=== PATIENT | male | born 1935 | race Caucasian/White ===

== ENCOUNTER → 2017-09-01 | Outpatient (REF) | payer MEDICARE, BC ==
[2017-09-01 19:09] LABS: CREATININE FOR GFR 1.28 MG/DL (0.70-1.30); GLOMERULAR FILTRATION RATE 57.4 (>35)
[2017-09-01 19:09] LABS: BLOOD UREA NITROGEN 20 MG/DL (7-18)
== END ==
LOC: M LABNEURO 14:50
DX: I10 Essential (primary) hypertension (principal)
CPT/HCPCS: 82565

== ENCOUNTER → 2020-02-21 | Outpatient (CLI) | payer MEDICARE, BC ==
[~2020-02-21] MED LIST: ATEN25TA PO; CALC500T61 PO; ECOT81TA5 PO; ELIQ2.5T PO; FLAG500T PO; GNP400TA10 PO; LOSA25TA14 PO; NYST10006 TOP; [UNRECOGNIZED DRUG - CODE] PO
--- NOTE | 2020-02-24 08:28 | REPPI ---
PROSTATE BIOPSY ULTRASOUND: 02/21/20. CLINICAL: Elevated PSA levels. TECHNIQUE: Transrectal ultrasound examination. FINDINGS: Ultrasound examination demonstrate heterogenous prostate gland measuring 4.6 x 4.0 x 5.6cm (53cc). The prostate gland is heterogenous and demonstrates small scattered calcifications and cysts without discrete mass lesion. Biopsy performed by Dr. Turpin without complications. IMPRESSION: Heterogenous prostate gland as noted above. Biopsy performed without complication. MTDD
== END ==
LOC: M SMT PRO 10:20
PROVIDERS: ATTEND Urology
DX: C61 Malignant neoplasm of prostate (principal)
CPT/HCPCS: 55700; 76872; G0416

== ENCOUNTER → 2020-02-27 | Outpatient (REF) | payer MEDICARE, BC | LOC: M SMT 17:00 | PROVIDERS: ATTEND Urology | DX: N39.0 Urinary tract infection, site not specified (principal) | CPT/HCPCS: 87088; 87186; G0463 ==

== ENCOUNTER 2020-03-29 21:31 | Inpatient (IN) | payer MEDICARE, BC ==
[~2020-03-29] VITALS: Ht 175.3 cm; Wt 70.9 kg
[2020-03-29] MEDS: REMEDY PHYTOPLEX Z-GUARD PASTE 113GM TUBE (FROM STOREROOM PRODUCT) TOP SCH (23:00)
[2020-03-29] MEDS ORDERED: NOREPINEPHRINE BITARTRATE 8 MG in D5W 500 ML IV SCH (23:15)
[2020-03-29] MEDS ORDERED: MOM 30ML SUSPENSION UDC PO PRN (23:15)
[2020-03-29] MEDS ORDERED: MAALOX 30 ML SUSP *UDC PO PRN (23:15)
--- NOTE | 2020-03-29 23:20 | HPEPDOC ---
[facility] Medical History & Physical Date of Admission Mar 29, 2020 Date of Service: Mar 29, 2020 Attending Physician: JAZMINE MANE MD History and Physical TIME OF SERVICE: 11:35 PM CHIEF COMPLAINT: Confusion HISTORY OF PRESENT ILLNESS: The majority of the history was obtained from medical records and discussion with Dr. Santoro at [facility]. This 84-year-old gentleman was brought to the hospital for evaluation of confusion noted by his . His temperature was 101, heart rate was 108, respiratory rate was 30, blood pressure was 113/60, and O2 sats were 96%. The EKG showed sinus tachycardia with a heart rate of 108. His WBC count was 17.1, hemoglobin was 14.5, and platelets were 110. His sodium was 143, potassium was 4.3, chloride was 104, carbon dioxide was 18, anion gap was 21, BUN was 35, creatinine was 3, GFR was 21, glucose was 105, calcium was 8.4, total bilirubin was 0.8, AST was 59, ALT was 41, alkaline phosphatase was 171, troponin was 0.241 with a repeat of 0.267 about 2 hours later. Total protein was 6.8, albumin was 3.1, and lipase was 45. His PT was 12.7, INR was 1.22, PTT was 28.3, and d-dimer was 35.2 PH was 7.39, PCO2 was 21, and PO2 was 88 Per d/w the chest x-ray was unremarkable. The UA was positive for ketones, leukocyte esterase, RBCs, WBCs and bacteria He was diagnosed with urosepsis and given vancomycin and levofloxacin and ordered on norepinephrine because of persistent hypotension prior to transfer to [facility] for higher level of care. At the time of my evaluation, the patient admitted to feeling very weak, and having fevers and chills; he did not provide concrete answers when asked if he had back pain, abdominal pain or pain with urination REVIEW OF SYSTEMS: 12 point review of systems negative except as listed in HPI PAST MEDICAL/ SURGICAL HISTORY: Dementia Prostate adenocarcinoma left mid lateral prostate [place] score 8, left apex [place] score 7 plans are for EBRT+ ADT or ADT alone with intent to cure Hearing loss Vertigo Chronic Hypertension Left knee surgery Debility, uses a wheelchair Vasectomy SOCIAL HISTORY: He has never smoked He is FAMILY HISTORY: Father had Alzheimer's dementia Mother had cancer ALLERGIES: Please see below. HOME MEDICATIONS: Please see below. PHYSICAL EXAMINATION: Vital Signs Date Time Temp Pulse Resp B/P (MAP) Pulse Ox O2 Delivery O2 Flow Rate FiO2 03/29/20 23:30 100.1 109 34 89/57 (68) 96 Nasal Cannula 3.0 GEN: well-nourished / well developed/ NAD INTEGUMENT: slightly flushed/ not jaundice / excoriations on back HEENT: lips acyanotic /mucus membranes moist and pink / NC in place / hearing aides visible CVS: RRR/NMRG LUNGS: using accessory muscles to breath / tachypneic / decreased air entry bilaterally / breath sounds are deminished ABDOMEN: Contour ( obese) / soft & tender with palpation of lower abdomen : leblanc in place draining urine/ there is blood around the meatus but no jasen blood in the leblanc tube or bag collecting urine MSK/EXTREMITIES: NCAT NEURO: speech is not dysarthric PSYCH: alert and oriented / able to understand and follow all commands LABORATORY DATA: see HPI IMAGING: see HPI MICROBIOLOGY: Blood cx pending... ASSESSMENT: Mr. Spencer is an 84-year-old with a history of prostate cancer, dementia, hypertension and vertigo who presented to [facility] with AMS and was diagnosed with Urosepsis; he was transferred here for a higher level of care. for management of MODS. PLAN: 1. Multiple organ dysfunction syndrome SIRS criteria: Temp >101 / HR >90 / WBC >12 / RR > 20 The source of infection is the Urine Per d/w at [facility] the patient was persistently hypotensive and started on Norepi He also has LORETTA and elevation of his shock liver QSofa score = 3 points = high risk He is DNI but wants CPR Plan: admit to ICU / telemetry / f/u repeat CBC, CMP, prolactin, coags, and lactic acid / Zosyn pending pancx results and /f/u blood cx, UA w Cx and sputum Cx / Acetaminophen PRN for fever / target MAP at of least 65 to 70 / f/u Is and Os with target UOP of at least 0.5 ml/kg/H / f/u FSBS w target serum glucose 140-180 while acutely ill 2. Acute Renal Failure Likely 2/2 sepsis Plan: Is/Os, daily weights / IVF / f/u ulytes for FENa or FEUrea / renal US 3. Early shock liver Plan: trend LFTs 4. AG Metabolic acidosis 2/2 infection Plan: f/u lactic acid / IVF and abx 5. Dyspnea Not sure if he is tachypneic bc he is trying to blow off the excess acid of if there is another process going on Plan: f/u repeat chest xray, and d-dimer 6. Metabolic Encephalopathy Likely 2/2 sepsis Per d/w he was agitated and received 1 dose of ativan Plan: treat infection 7. Type 2 NSTEMI Likley 2/2 sepsis He didn't report having chest pain Plan: telemetry / trend trops 8. Chronic Hypertension Plan: hold losartan DVT PROPHYLAXIS: lovenox Prognosis: guarded DISPOSITION: will need at least 2 midnight's stay LATE ENTRY #Elevated d-dimer He is still tachypneic Plan:start treatment dose lovenox pending VQ scan Home Medications Scheduled Aspirin (Ecotrin) 81 Mg Tablet.dr, 81 MG PO DAILY Calcium Carbonate (Calcium Carbonate) 500 Mg Tablet, 500 MG PO DAILY Garlic (Garlic) 400 Mg Tablet, 400 MG PO DAILY Losartan Potassium (Losartan Potassium) 25 Mg Tablet, 25 MG PO QHS Pumpkin Seed Oil/Saw Mountain (Saw Mountain 160 mg Softgel) 160 Mg Capsule, 160 MG PO DAILY Allergies Coded Allergies: Sulfa (Sulfonamide Antibiotics) (Verified Adverse Reaction, Intermediate, 03/30/20) GI Upset A-FIB/CHADSVASC A-FIB History Current/History of A-Fib/PAF?: No Current PO Anticoag Therapy: No JAZMINE MANE MD Mar 29, 2020 23:20
[2020-03-29 23:30] VITALS: BP 89/57
[2020-03-30] VITALS (19 sets, daily range): BP systolic 89–149; BP diastolic 57–82
[2020-03-30] MEDS ORDERED: CALC500T61 PO (01:00)
[2020-03-30] MEDS ORDERED: ECOT81TA5 PO (01:00)
[2020-03-30] MEDS ORDERED: GNP400TA10 PO (01:00)
[2020-03-30] MEDS ORDERED: [UNRECOGNIZED DRUG - CODE] PO (01:00)
[2020-03-30] MEDS ORDERED: LOSA25TA14 PO (01:00)
[2020-03-30 01:08] LABS: HEMATOCRIT 41.2 % (42.0-52.0); HEMOGLOBIN 13.4 g/dl (13.5-17.5); MEAN CORPUSCULAR HEMOGLOBIN 31.4 pg (27.0-33.0); MEAN CORPUSCULAR HGB CONC 32.5 g/dl (32.0-36.5); MEAN CORPUSCULAR VOLUME 96.5 fl (80.0-96.0); RED BLOOD COUNT 4.27 10^6/uL (4.30-6.10); VENOUS BASE EXCESS -13.5 (-2.0-2.0); VENOUS HCO3 12.1 MEQ/L (23.0-27.0); VENOUS O2 SATURATION 94.4 % (60.0-80.0); VENOUS PARTIAL PRESSURE O2 74.7 mmHg (30.0-50.0); VENOUS PH 7.253 UNITS (7.330-7.430); VENOUS STANDARD HCO3 14.1 MEQ/L; VENOUS TOTAL CO2 12.9 MEQ/L (24.0-28.0); WHITE BLOOD COUNT 23.3 10^3/uL (4.0-10.0)
[2020-03-30] MEDS: NS 1,000 ML IV SCH ×2 (01:17→15:29)
[2020-03-30 01:19] LABS: INR 1.55; PROTHROMBIN TIME 18.9 SECONDS (12.5-14.3)
[2020-03-30] MEDS: ACETAMINOPHEN TAB 650MG DOSE (2X325MG) PO PRN ×4 (01:29→21:06)
[2020-03-30 01:41] LABS: PLATELET COUNT, AUTOMATED 72 10^3/uL (150-450)
[2020-03-30 01:49] LABS: ALBUMIN 2.5 GM/DL (3.2-5.2); CALCIUM LEVEL 7.7 MG/DL (8.8-10.2); CREATININE FOR GFR 2.91 MG/DL (0.70-1.30); GLOMERULAR FILTRATION RATE 22.1 (>35); POTASSIUM SERUM 4.4 MEQ/L (3.5-5.1); TOTAL PROTEIN 6.1 GM/DL (6.4-8.2); TROPONIN I 0.49 NG/ML (< 0.10)
[2020-03-30 01:56] LABS: D-DIMER QUANT > 4000 ng/ml (<500)
[2020-03-30 02:30] LABS: FIBRINOGEN 457 MG/DL (221-452)
[2020-03-30 04:23] LABS: HEMATOCRIT 40.6 % (42.0-52.0); HEMOGLOBIN 12.9 g/dl (13.5-17.5); MEAN CORPUSCULAR HEMOGLOBIN 30.6 pg (27.0-33.0); MEAN CORPUSCULAR HGB CONC 31.8 g/dl (32.0-36.5); MEAN CORPUSCULAR VOLUME 96.2 fl (80.0-96.0); RED BLOOD COUNT 4.22 10^6/uL (4.30-6.10); WHITE BLOOD COUNT 27.5 10^3/uL (4.0-10.0)
[2020-03-30 04:31] LABS: PLATELET COUNT, AUTOMATED 62 10^3/uL (150-450)
[2020-03-30 04:57] LABS: ALBUMIN 2.4 GM/DL (3.2-5.2); BILIRUBIN,TOTAL 0.9 MG/DL (0.2-1.0); CALCIUM LEVEL 7.6 MG/DL (8.8-10.2); CREATININE FOR GFR 2.94 MG/DL (0.70-1.30); GLOMERULAR FILTRATION RATE 21.8 (>35); MAGNESIUM LEVEL 1.6 MG/DL (1.8-2.4); POTASSIUM SERUM 4.6 MEQ/L (3.5-5.1); TOTAL PROTEIN 5.7 GM/DL (6.4-8.2); TROPONIN I 0.87 NG/ML (< 0.10)
[2020-03-30] MEDS: PIPERACILLIN/TAZOBACTAM SOD 4.5 GM in D5W MINI-BAG PLUS 50 ML IV SCH ×2 (05:14→18:14)
[2020-03-30] MEDS ORDERED: ENOXAPARIN 80MG/0.8ML SYRINGE (J1650 PER 10MG) SC SCH (08:00)
--- NOTE | 2020-03-30 08:27 | REP ---
INDICATION: dyspnea. COMPARISON: None FINDINGS: The technique utilized in obtaining the radiograph has magnified the cardiac silhouette and accentuated the interstitial markings. There is no overt cardiomegaly. There is a right-sided PICC line the tip of which is in the superior vena cava. There are patchy right basilar opacities. The diaphragmatic surface of the right lung is elevated and partially silhouetted out. There is right CP angle blunting. Curvilinear opacities are seen in the left lung base. The osseous structures are within normal limits. IMPRESSION: 1. Right lung base findings, as described above, pneumonia/atelectasis/effusion. 2. Probable subsegmental atelectasis left lung base. Early pneumonia cannot be ruled out. 3. Other findings as described above. <Electronically signed by Pillo Napoles > 03/30/20 [id number]
--- NOTE | 2020-03-30 08:30 | REP ---
INDICATION: recheck line placement was pulled. COMPARISON: 03/30/2020 at 12:44 a.m. FINDINGS: The technique utilized in obtaining the radiograph has magnified the cardiac silhouette and accentuated the interstitial markings. The right-sided catheter has been retracted, however, it remains in the superior vena cava. It was previously mentioned as a PICC line catheter, however, it is clear now that it represents a right-sided subclavian central venous catheter. There are no other changes. IMPRESSION: There is no acute cardiopulmonary disease. <Electronically signed by Pillo Napoles > 03/30/20 [id number]
[2020-03-30] MEDS: REMEDY PHYTOPLEX Z-GUARD PASTE 113GM TUBE (FROM STOREROOM PRODUCT) TOP SCH ×3 (09:00→21:00)
[2020-03-30] MEDS ORDERED: ENOXAPARIN 30MG/0.3ML SYRINGE (J1650 PER 10MG) SC SCH (09:00)
[2020-03-30] MEDS ORDERED: NS 1,000 ML IV ONE ×2 (10:45→17:30)
[2020-03-30 13:10] LABS: CLOSTRIDIUM DIFFICILE PCR NEGATIVE (NEGATIVE)
--- NOTE | 2020-03-30 13:32 | IPNPDOC ---
Text Note Date of Service The patient was seen on 03/30/20. NOTE Patient was seen and examined by me this morning. The patient states that he continues to have some right lower quadrant abdominal pain and he continues to have liquid diarrhea. He states that he is slightly short of breath as well. PHYSICAL EXAMINATION: General: The patient is awake, alert, oriented x3, in mild distress because of abdominal pain and shortness of breath Head and Neck Exam: Extraocular muscles intact. Pupils equally round and reactive to light. Extremities are extremely dry Neck is supple. There is no jugular venous distention (JVD). Cardiovascular: S1 and S2, heard Mild tachycardia. Trace edema of the bilateral lower extremities. Respiratory: Decreased breath sounds on the right lower lung field. No wheezing, expiratory in upper right lung field as well as in the left lower lung beverly. No rhonchi, no rales Abdomen: Soft. Positive bowel sounds. Tenderness on palpation in the right lower quadrant with mild guarding but no rigidity Genitourinary: Indwelling Segal catheter was noted. Musculoskeletal: Clubbing of the fingernails, no cyanosis was noted. 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 Power is 5/5 in all extremities. Labs reviewed Radiology reviewed: X-ray shows right lower lobe complete haziness Microbiology. Outside results show that the patient is having gram negative rods in the blood. Assessment and plan Mr. Spencer is an 84-year-old with a history of prostate cancer, dementia, hypertension and vertigo who presented to [facility] with AMS and was diagnosed with Urosepsis, possibly LORETTA over CKD, lactic acidosis, mild hypotension and elevated troponins. The patient most likely was in severe sepsis and was initiated with IV Zosyn because of his gram-negative rods in the blood. The source of infection was thought to be urosepsis as well as his UA was dirty and bacteria were present. The patient will be getting a CT scan of the chest without contrast as the patient has AK I and there is very high risk for contrast-induced nephropathy. Initially there was a thought of ruling out pulmonary embolism and a VQ scan was ordered but the patient is maintaining his saturations in 94, 95 on knee on 2 L and is not tachycardic anymore. The patient is extremely dry and that is the reason the patient will be getting 1 L of bolus. After he got a 1 L bolus already and will be continued on 75 mL of fluids. Lactic acidosis will be monitored as well. In my opinion, the patient could be having mesenteric ischemia as the patient is having diarrhea and severe lactic acidosis with right lower quadrant tenderness and mild guarding. We will hydrate the patient and if the patient's renal function improves. Will get a CT and of the abdomen, pelvis. That also could be the reason off his elevated D dimers. Currently, the patient be continued on IV antibiotics and IV fluids. Also Clostridium difficile. I'll testing will be sent as the patient was on Bactrim for a UTI. Prescribed by the PCP and is having diarrhea right now. PLAN: 1. Severe sepsis. Likely secondary to urosepsis, bacteremia with gram-negative rods from urine as being the source as well as possible C. difficile colitis. We will address the individual cause. The patient currently has been on IV Zosyn. Repeat blood cultures have been sent. We will get a CT scan of the chest without contrast as the x-ray has been showing possible pneumonia as well. No contrast will be given as the patient has AK I. Continue treating the individual cause. For UTI. The patient has been on Zosyn. For his possible pneumonia. We will start him on gram-positive coverage with IV vancomycin. MRSA screen will be done as well. Sputum culture pro-Jonathon will be ordered also. We will repeat the blood culture, which already has been sent and will await for the final results of the blood culture from the outside facility. 2. Acute Renal Failure: Likely because of severe hypotension. Currently, the patient has been on IV fluids. We will avoid any nephrotoxic drugs. Continue IV fluids. Renal ultrasound has been ordered. 3. AG Metabolic acidosis: Likely secondary to lactic acidosis . Will repeat the labs and will get an ABG as well. The patient's lactic acid is very high and could be related to mesenteric ischemia because of the cart tenderness. Lactic acidosis and diarrhea. We will continue to follow. 5. Dyspnea: Likely secondary to pneumonia. His d-dimer has been elevated, but he is not tachycardic or hypoxic at this time. Also, CT and exam cannot be done. X- ray was seen and it shows right lower lobe, white out and for that reason, VQ scan will not be helpful. That has been discontinued. We will continue the IV fluids and if the renal function improves will consider CTA if the patient becomes tachycardic or hypoxic. Continue with subcutaneous heparin and SCDs at this time. 6. Metabolic Encephalopathy: She does have dementia as well as per the documentation and we will continue to follow. Most likely his deterioration of mental status was because of his hypotension and severe sepsis. Currently, he is alert, oriented to time, place and person 7. Type 2 NSTEMI: EKG reviewed. No interval changes. The troponins have been bumping up, but because he was severely hypoxic and is in severe sepsis. It could be type II PR. Will continue to trend. No need of heparinization at this time. The patient does not complain of any chest pain. The echo also has been ordered. Continue telemetry. 8. Diarrhea. Nonbloody. At this time. Will send a C. difficile as the patient was on Bactrim for almost a week prior to the hospitalization. Also, this could be mesenteric ischemia and if the renal function improves. The patient should be getting a CT and 2 g abdomen, pelvis to rule out any mesenteric ischemia. 9. Thrombocytopenia. Likely secondary to severe sepsis. We'll continue to trend. DVT prophylaxis with SCDs Prognosis: guarded Disposition unknown at this time I had a detailed discussion with him regarding his CODE STATUS and he is very well aware of the discussion, he is alert, oriented to time, person person and decided to be DNR, DNI. VS,Fishbone, I+O VS, Fishbone, I+O Laboratory Tests 03/30/20 00:44 03/30/20 04:17 Vital Signs Date Time Temp Pulse Resp B/P (MAP) Pulse Ox O2 Delivery O2 Flow Rate FiO2 03/30/20 12:00 98.4 96 28 128/82 (97) 95 Nasal Cannula 2.0 I&O- Last 24 Hours up to 6 AM 03/30/20 05:59 Intake Total 430 ml Output Total 175 ml Balance 255 ml RAFA MANN MD Mar 30, 2020 13:32
[2020-03-30] MEDS ORDERED: VANCOMYCIN HCL 1,000 MG, VIAL MATE ADAPTER 1 EACH in D5W 250 ML IV SCH (13:45)
[2020-03-30 13:57] LABS: ABG BASE EXCESS -12.3 (-2.0-2.0); ABG HCO3 11.2 MEQ/L (22.0-26.0); ABG O2 SATURATION 97.9 % (95.0-99.0); ABG PARTIAL PRESSURE CO2 21.3 mmHg (35.0-45.0); ABG PARTIAL PRESSURE O2 100.8 mmHg (75.0-100.0); ABG STANDARD HCO3 14.9 MEQ/L (22.0-26.0); ABG TOTAL CO2 11.9 MEQ/L (23.0-31.0)
[2020-03-30 14:25] LABS: ALBUMIN 2.3 GM/DL (3.2-5.2); BILIRUBIN,TOTAL 0.9 MG/DL (0.2-1.0); CALCIUM LEVEL 7.4 MG/DL (8.8-10.2); CREATININE FOR GFR 2.82 MG/DL (0.70-1.30); GLOMERULAR FILTRATION RATE 22.9 (>35); TOTAL PROTEIN 5.2 GM/DL (6.4-8.2)
--- NOTE | 2020-03-30 14:50 | RO ---
DATE OF OPERATION: 03/30/2020 PREOPERATIVE DIAGNOSIS: Hypotension. POSTOPERATIVE DIAGNOSIS: Hypotension. PROCEDURE: Right subclavian central venous CVP placement. PROCEDURE NOTE: The patient was seen in the intensive care unit hypotensive, requiring pressors in urosepsis. The procedure was explained to the patient as well as the possible complications pertaining thereto, including, but not limited to, bleeding, infection, medications reaction, and lung collapse. A written and informed consent were obtained and placed on the chart. The patient was placed in the supine position. Skin overlying the right subclavian vein was prepped with ChloraPrep, draped in a sterile fashion. A 25-gauge needle was used to raise a skin wheal with 1% lidocaine. Thereafter, a 17-gauge introducer needle was placed in through the skin and into the right subclavian vein. Free return of venous blood was obtained. A vascular-tip guidewire was advanced 20 cm, and the needle was removed out through the skin. A small incision was made adjacent to the guidewire, and a triple-lumen catheter was placed over the guidewire to a distance of 18 cm. The wire was removed. The catheter was flushed and sewn in place. A sterile dressing was applied. There were no apparent complications. A postprocedural chest x-ray is pending. The patient is left in unchanged condition in the intensive care unit. DEYANIRA
[2020-03-30] MEDS ORDERED: VANCOMYCIN INTERMITTENT/PULSE DOSING BY CLINICAL PHARMACIST PER DOSING PROTOCOL XX SCH (15:00)
[2020-03-30] MEDS ORDERED: VANCOMYCIN HCL 750 MG, VIAL MATE ADAPTER 1 EACH in D5W 250 ML IV ONE (15:00)
[2020-03-30] MEDS ORDERED: VANCOMYCIN HCL 500 MG in D5W MINI-BAG PLUS 100 ML IV ONE (16:00)
--- NOTE | 2020-03-30 16:20 | REP ---
INDICATION: rah. COMPARISON: None. TECHNIQUE: Exam obtained portably. The patient was unable to sustain respirations which causes exam limitations. FINDINGS: Multiple ultrasonographic images of the right kidney show the right kidney to measure 10.2 x 4.5 x 5.1 cm.. The renal cortical echotexture is echogenic. There are no masses. There less than optimal corticomedullary differentiation. There is no hydronephrosis. There are no perinephric fluid collections. In the inferior pole there is a 2.5 x 2.4 x 3.3 cm sized nearly anechoic structure but with low level internal echoes. There is some posterior wall enhancement and some increased through transmission. Multiple ultrasonographic images of the left kidney show the left kidney to measure 11 x 5.1 x 5.9 cm. . The renal cortical echotexture is increased. There are no masses. There is less than optimal corticomedullary differentiation. There is no hydronephrosis. There are no perinephric fluid collections. There is a 1.7 x 1.1 x 1.4 cm sized anechoic structure in the inferior pole which exhibits posterior wall enhancement and increased through transmission. A Segal balloon catheter is seen in the urinary bladder decompressing it. IMPRESSION: 1. Bilateral increased renal cortical echoes right slightly greater than left and suggestive of medical renal disease. 2. Probable complex/hyperdense right renal cyst as described above. 3. Simple left renal cyst as described above. <Electronically signed by Pillo Napoles > 03/30/20 [id number]
[2020-03-30] MEDS ORDERED: SODIUM CHLORIDE 0.9% INJ 10 ML SYR IV PRN (17:00)
[2020-03-30] MEDS ORDERED: HEPARIN SOD (PORCINE) 5000UNITS/ML 1ML VIAL/SYRINGE IV PRN (17:30)
--- NOTE | 2020-03-30 18:12 | REPVR ---
PROCEDURE INFORMATION: Exam: CT Chest Without Contrast; Diagnostic Exam date and time: 03/30/2020 1:33 PM Age: 84 years old Clinical indication: Other: Pneumonia; Additional info: Pna TECHNIQUE: Imaging protocol: Diagnostic computed tomography of the chest without contrast. 3D rendering (Not supervised by radiologist): MIP and/or 3D reconstructed images were created by the technologist. Radiation optimization: All CT scans at this facility use at least one of these dose optimization techniques: automated exposure control; mA and/or kV adjustment per patient size (includes targeted exams where dose is matched to clinical indication); or iterative reconstruction. COMPARISON: [facility] PORTABLE CHEST X-RAY 03/30/2020 7:47 AM FINDINGS: Lungs: Probable large calcified granuloma at the right lung base. Calcifications along the right hemidiaphragm may be the result of previous asbestos exposure. There is atelectasis and infiltrate at the right posterior lung base. Pleural space: There is no evidence of pneumothorax. There is a small right pleural effusion. Heart: The heart is normal in size. Mediastinal space: There is severe elevation of the right hemidiaphragm to the level of the right hilum. Aorta: The ascending aorta measures approximately 4 cm. Lymph nodes: There are calcified lymph nodes left infrahilar region. Bones/joints: There is bridging anterior osteophyte formation of the thoracic spine. Soft tissues: Unremarkable. IMPRESSION: 1. Atelectasis and infiltrate right posterior lung base. 2. 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 3. 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 4. Small right pleural effusion. 5. Severe elevation of the right hemidiaphragm and this could be secondary to paralysis of the right hemidiaphragm. Electronically signed by: Doug Root On 03/30/2020 18:12:37 PM
[2020-03-30] MEDS: HEPARIN DRIP 25,000 UNITS in IV 1 EA IV SCH ×2 (18:56→21:18)
--- NOTE | 2020-03-30 19:11 | IPNPDOC ---
Text Note Date of Service The patient was seen on 03/30/20. NOTE SUBJECTIVE: Patient was seen and examined at bedside. He states he continues to have right lower abdominal pain and liquid diarrhea which is leaking out. He also notes some shortness of breath. Denies chest pain or palpitations. OBJECTIVE: VITAL SIGNS: See below GENERAL: Alert, comfortable, in no acute distress HEENT: Normocephalic, atraumatic, PERRLA, EOMI, dry mucous membranes NECK: Supple, trachea midline, no lymphadenopathy CARDIOVASCULAR: Regular rate and rhythm, normal S1 and S2. No murmurs, rubs, or gallops appreciated RESPIRATORY: No breath sounds appreciated in the right lower lung beverly. There is upper airway wheezing which does not extend into the lung beverly. Right upper lung beverly and left lung clear to auscultation. ABDOMEN: Soft, nondistended, bowel sounds present. tender to palpation in the right lower quadrant without rigidity, rebound tenderness, or guarding. EXTREMITIES: No cyanosis or edema. NEUROLOGIC: No focal deficits appreciated PSYCHIATRIC: Alert and oriented x3 to person, place and time. - CT Chest impression: 1. Atelectasis and infiltrate right posterior lung base. 2. 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 3. 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 4. Small right pleural effusion. 5. Severe elevation of the right hemidiaphragm and this could be secondary to paralysis of the right hemidiaphragm. ASSESSMENT/PLAN: 84-year-old male with a history of prostate cancer, dementia, hypertension who presented initially to [facility] with altered mental status and was found to have sepsis secondary to UTI with LORETTA, lactic acidosis, hypotension, elevated troponin. # Sepsis secondary to UTI with bacteremia - [facility] reports positive blood culture from gram negative cocci. Repeat blood culture pending. - Procalcitonin elevated at 71.63 - Abx coverage with Vancomycin and Zosyn day #1 - Urine culture pending. Sputum culture pending. MRSA screen pending # UTI - UA concerning for infection, urine culture pending - abx coverage noted above # Elevated troponin secondary to NSTEMI vs demand ischemia - Troponin trending up, continue to trend q6h until peaked - No chest pain. No EKG changes noted. - Echocardiogram ordered stat. Monitor telemetry. - Will start heparin ip without bolus, per Dr. Jimenez who had been caring for this patient earlier today, for possible NSTEMI. Patient is high risk for bleeding and has thrombocytopenia, will be monitored carefully on heparin. # Acute kidney injury, possible underlying CKD - likely secondary to severe hypotension - continue IV maintenance fluids s/p fluid bolus - avoid nephrotoxic agents - renal U/S shows likely medical renal disease, baseline Cr unknown # Anion gap metabolic acidosis - Secondary to lactic acidosis, due to severe sepsis vs mesenteric ischemia as discussed below. - Fluid resuscitation # Dyspnea - Elevated d-dimer, unable to obtain CTA chest to r/o PE due to kidney function. Echocardiogram pending. - Chest CT results as noted above, could contribute to his dyspnea # Diarrhea with RLQ pain - C diff negative - Mesenteric ischemia possible, consider CTA abdomen/pelvis if renal function improves - Abdomen exam remains benign, continue to monitor and trend lactic acid level # Thrombocytopenia - Likely related to sepsis, continue to trend # Elevated LFT - trend LFTs, possible shock liver due to hypotension # Metabolic encephalopathy - Improved, likely secondary to sepsis with hypotension - currently alert and oriented x3 DVT prophylaxis: SCDs Disposition: pending clinical improvement CODE STATUS: DNR/DNI VS,Fishbone, I+O VS, Fishbone, I+O Laboratory Tests 03/30/20 00:44 03/30/20 04:17 03/30/20 13:29 Vital Signs Date Time Temp Pulse Resp B/P (MAP) Pulse Ox O2 Delivery O2 Flow Rate FiO2 03/30/20 15:14 100.7 94 30 136/77 (96) 95 Nasal Cannula 2.0 I&O- Last 24 Hours up to 6 AM 03/30/20 06:00 Intake Total 550 ml Output Total 200 ml Balance 350 ml GME ATTESTATION GME ATTESTATION My faculty preceptor for this patient encounter was physically present during the encounter and was fully available. All aspects of the patient interview, examination, medical decision making process, and medical care plan development were reviewed and approved by the faculty preceptor. The faculty preceptor is aware and concurs with the plan as stated in the body of this note and will attest to such by his/her cosignature. ATTENDING NOTE I, Nino Hanley, have independently examined this patient and performed my own physical exam, as well as reviewed the documentation and edited where necessary. I have discussed in detail with the resident / student the findings and plan of treatment as documented by the resident / student and edited their note. I agree with their findings and treatment plan and have edited their documentation. I will continue to follow the patient during this hospital stay. SELENA PAGE D.O. Mar 30, 2020 19:10 NINO HANLEY MD Apr 11, 2020 05:25
[2020-03-30] MEDS: SODIUM CHLORIDE 0.9% INJ 10 ML SYR IV SCH (21:07)
[2020-03-31] VITALS (18 sets, daily range): BP systolic 100–169; BP diastolic 63–103
[2020-03-31 05:49] LABS: HEMOGLOBIN 12.9 g/dl (13.5-17.5); MEAN CORPUSCULAR HEMOGLOBIN 30.7 pg (27.0-33.0); MEAN CORPUSCULAR HGB CONC 33.1 g/dl (32.0-36.5); MEAN CORPUSCULAR VOLUME 92.9 fl (80.0-96.0)
[2020-03-31] MEDS: NS 1,000 ML IV SCH (05:52)
[2020-03-31] MEDS: PIPERACILLIN/TAZOBACTAM SOD 4.5 GM in D5W MINI-BAG PLUS 50 ML IV SCH ×2 (05:53→17:16)
[2020-03-31] MEDS: SODIUM CHLORIDE 0.9% INJ 10 ML SYR IV SCH ×3 (05:53→21:12)
[2020-03-31 05:58] LABS: PLATELET COUNT, AUTOMATED 41 10^3/uL (150-450)
[2020-03-31] MEDS ORDERED: LOPERAMIDE 2 MG CAPLET PO PRN ×2 (06:15→08:30)
[2020-03-31 06:19] LABS: LYMPHOCYTES 2 % (16-44); METAMYELOCYTES 1 % (0-0); MONOCYTES 2 % (0-5); NEUTROPHILS 91 % (28-66); TOXIC VACUOLATION 2+
[2020-03-31 06:20] LABS: PLATELET ESTIMATE MARKED DECREASE (NORMAL)
[2020-03-31 06:21] LABS: TROPONIN I 1.34 NG/ML (< 0.10); VANCOMYCIN RANDOM 11.4 UG/ML
[2020-03-31] MEDS ORDERED: VANCOMYCIN HCL 750 MG, VIAL MATE ADAPTER 1 EACH in D5W 250 ML IV ONE (06:30)
[2020-03-31 07:10] LABS: ALBUMIN 2.1 GM/DL (3.2-5.2); BILIRUBIN,TOTAL 0.8 MG/DL (0.2-1.0); CALCIUM LEVEL 7.2 MG/DL (8.8-10.2); CREATININE FOR GFR 2.02 MG/DL (0.70-1.30); GLOMERULAR FILTRATION RATE 33.7 (>35); POTASSIUM SERUM 3.7 MEQ/L (3.5-5.1); TOTAL PROTEIN 4.8 GM/DL (6.4-8.2)
[2020-03-31] MEDS: REMEDY PHYTOPLEX Z-GUARD PASTE 113GM TUBE (FROM STOREROOM PRODUCT) TOP SCH ×3 (09:00→20:38)
--- NOTE | 2020-03-31 09:25 | REP ---
INDICATION: abdominal pain, diarrhea COMPARISON: None TECHNIQUE: Axial noncontrast images from the lung bases to the pubic symphysis with coronal and sagittal reformations. This CT examination was performed using the following dose reduction techniques: Automated exposure control, adjustment of mA and/or kv according to the patient's size, and use of iterative reconstruction technique. FINDINGS: Examination is significantly limited by motion artifact. Lung bases include small pleural effusions and bibasilar atelectasis with evidence for pulmonary vascular congestion/early CHF. Liver, spleen, pancreas, gallbladder, bilateral adrenal glands and kidneys are grossly normal by noncontrast evaluation. The colonic diverticulosis is appreciated including diverticular disease involving the ascending colon/hepatic flexure and subtle diverticulitis cannot be excluded. No evidence for bowel obstruction. No free air to suggest perforation. No drainable collection/abscess. Pelvis demonstrates Segal catheter in bladder along with mild prostatomegaly. Very small amount of free fluid identified in the pelvis is nonspecific. No free air. No adenopathy. No focal inflammatory stranding. Abdominal aorta demonstrates atherosclerotic disease along with 2 focal saccular infrarenal areas of aneurysmal dilatation measuring 3.7 cm at the level of the kidney and 3.6 cm at the level of the pelvic rim. Musculoskeletal structures demonstrate age-related degenerative changes including chronic grade 1 spondylolisthesis at the L5-S1 level without acute osseous abnormality. IMPRESSION: 1. Limited evaluation of the enteric system with scattered diverticulosis including diverticular disease at the hepatic flexure with possible diverticulitis. Evaluation is limited due to motion artifact. No evidence for bowel obstruction or perforation. 2. 2 chronic appearing focal saccular infrarenal abdominal aortic aneurysms measuring 3.6 cm and 3.7 cm maximal diameter each at the level of the left kidney and aortic rim. 3. Lung bases suggest pulmonary vascular congestion with pulmonary vascular engorgement and associated bibasilar atelectasis with small pleural effusions (right greater than left). <Electronically signed by Laz De La Rosa > 03/31/20 0950
[2020-03-31 09:37] LABS: ABG BASE EXCESS -8.9 (-2.0-2.0); ABG HCO3 13.9 MEQ/L (22.0-26.0); ABG O2 SATURATION 94.7 % (95.0-99.0); ABG PARTIAL PRESSURE CO2 23.1 mmHg (35.0-45.0); ABG PARTIAL PRESSURE O2 70.6 mmHg (75.0-100.0); ABG STANDARD HCO3 17.4 MEQ/L (22.0-26.0); ABG TOTAL CO2 14.6 MEQ/L (23.0-31.0); ABG pH (ARTERIAL) 7.396 UNITS (7.350-7.450)
[2020-03-31] MEDS: D5W/0.45% SODIUM CHLORIDE 1,000 ML IV SCH ×2 (09:49→21:12)
--- NOTE | 2020-03-31 09:50 | IPNPDOC ---
Text Note Date of Service The patient was seen on 03/31/20. NOTE SUBJECTIVE: Patient was seen and examined at bedside. He states his whole abdomen is hurting him now. He continues to have persistent diarrhea. States he does feel somewhat short of breath. OBJECTIVE: VITAL SIGNS: See below GENERAL: Alert, comfortable, in no acute distress HEENT: Normocephalic, atraumatic, PERRLA, EOMI, dry mucous membranes NECK: Supple, trachea midline, no lymphadenopathy CARDIOVASCULAR: Regular rate and rhythm, normal S1 and S2. No murmurs, rubs, or gallops appreciated RESPIRATORY: Mild respiratory distress. No breath sounds appreciated in the right lower lung beverly. There is upper airway wheezing which does not extend into the distal lung beverly. Right upper lung beverly and left lung clear to auscultation. ABDOMEN: Soft, nondistended, bowel sounds present. tender to palpation throughout without rigidity, rebound tenderness, or guarding. EXTREMITIES: No cyanosis or edema. NEUROLOGIC: No focal deficits appreciated PSYCHIATRIC: Alert and oriented x3 to person, place and time. - CT Chest impression: 1. Atelectasis and infiltrate right posterior lung base. 2. 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 3. 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 4. Small right pleural effusion. 5. Severe elevation of the right hemidiaphragm and this could be secondary to paralysis of the right hemidiaphragm. - CT abdomen/pelvis impression: 1. Limited evaluation of the enteric system with scattered diverticulosis including diverticular disease at the hepatic flexure with possible di verticulitis. Evaluation is limited due to motion artifact. No evidence for bowel obstruction or perforation. 2. 2 chronic appearing focal saccular infrarenal abdominal aortic aneurysms measuring 3.6 cm and 3.7 cm maximal diameter each at the level of the left kidney and aortic rim. 3. Lung bases suggest pulmonary vascular congestion with pulmonary vascular engorgement and associated bibasilar atelectasis with small pleural effusions (right greater than left). ASSESSMENT/PLAN: 84-year-old male with a history of prostate cancer, dementia, hypertension [facility] and was found to have sepsis secondary to UTI with LORETTA, lactic acidosis, hypotension, elevated troponin. # Sepsis 2/2 bacteremia - possibly 2/2 UTI, possibly 2/2 intra-abdominal etiology - [facility] reports positive blood culture from gram negative cocci. Repeat blood culture shows gram positive rods. Repeat cultures x2 ordered. - Procalcitonin elevated at 71.63. Lactic acid continues to trend down from 9.2, now at 3.5 - Abx coverage with Vancomycin and Zosyn day #2 - Urine culture from 02/26: [facility] with [facility]. Coli [facility] - Urine culture pending. Sputum culture pending. MRSA screen negative. # UTI - UA concerning for infection, urine culture pending - abx coverage noted above # Diarrhea with RLQ pain possibly secondary to diverticulitis - C diff negative - Mesenteric ischemia possible, consider CTA abdomen/pelvis if renal function improves - Abdomen exam remains benign, continue to monitor and trend lactic acid level - CT abdomen/pelvis without contrast ordered due to kidney function, results noted above - Abx coverage for possible diverticulitis: on Zosyn day #2 # Elevated troponin secondary to demand ischemia vs NSTEMI (less likely) - Troponin initially trending up, now has peaked and trending down - No chest pain. No EKG changes noted. - Echocardiogram ordered stat. Monitor telemetry. - Initially started on heparin drip without bolus, per Dr. Jimenez who had been caring for this patient, for possible NSTEMI. - Patient is high risk for bleeding and has thrombocytopenia; patient had hematuria and heparin drip was discontinued. # Acute kidney injury, possible underlying CKD - likely secondary to severe hypotension - [facility] - continue IV maintenance fluids s/p fluid bolus - avoid nephrotoxic agents - renal U/S shows likely medical renal disease, baseline Cr unknown # Anion gap metabolic acidosis - Secondary to lactic acidosis, due to severe sepsis vs mesenteric ischemia as discussed below. - Fluid resuscitation, recheck ABG # Dyspnea - possibly 2/2 acidosis - Elevated d-dimer, unable to obtain CTA chest to r/o PE due to kidney function. Echocardiogram pending. - Chest CT results as noted above, could contribute to his dyspnea - Recheck ABG - Duonebs prn for wheezing # Thrombocytopenia - Likely related to sepsis, continue to trend, monitor for bleeding # Elevated LFT - trend LFTs, possible shock liver due to hypotension # Metabolic encephalopathy - Improved, likely secondary to sepsis with hypotension - currently alert and oriented x3 DVT prophylaxis: SCDs Disposition: pending clinical improvement CODE STATUS: DNR/DNI VS,Fishbone, I+O VS, Fishbone, I+O Laboratory Tests 03/30/20 13:29 03/31/20 05:15 Vital Signs Date Time Temp Pulse Resp B/P (MAP) Pulse Ox O2 Delivery O2 Flow Rate FiO2 03/31/20 06:00 98.2 100 29 119/84 (96) 95 Nasal Cannula 2.0 I&O- Last 24 Hours up to 6 AM 03/31/20 06:00 Intake Total 4525 ml Output Total 1375 ml Balance 3150 ml GME ATTESTATION GME ATTESTATION My faculty preceptor for this patient encounter was physically present during the encounter and was fully available. All aspects of the patient interview, examination, medical decision making process, and medical care plan development were reviewed and approved by the faculty preceptor. The faculty preceptor is aware and concurs with the plan as stated in the body of this note and will attest to such by his/her cosignature. ATTENDING NOTE I, Nino Hanley, have independently examined this patient and performed my own physical exam, as well as reviewed the documentation and edited where necessary. I have discussed in detail with the resident / student the findings and plan of treatment as documented by the resident / student and edited their note. I agree with their findings and treatment plan and have edited their documentation. I will continue to follow the patient during this hospital stay. SELENA PAGE D.O. Mar 31, 2020 09:50 NINO HANLEY MD Mar 31, 2020 13:48
[2020-03-31 13:02] LABS: CALCIUM LEVEL 7.1 MG/DL (8.8-10.2); CREATININE FOR GFR 1.91 MG/DL (0.70-1.30); GLOMERULAR FILTRATION RATE 35.9 (>35); POTASSIUM SERUM 3.7 MEQ/L (3.5-5.1)
--- NOTE | 2020-03-31 14:35 | ECGEPIP ---
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
[2020-03-31] MEDS: IPRATROPIUM 0.5MG/ALBUTEROL 2.5MG INH SOL UD 3ML (DUONEB) NEB PRN (20:04)
[2020-04-01] VITALS (9 sets, daily range): BP systolic 110–166; BP diastolic 54–103
[2020-04-01] MEDS: PIPERACILLIN/TAZOBACTAM SOD 4.5 GM in D5W MINI-BAG PLUS 50 ML IV SCH ×2 (05:20→18:14)
[2020-04-01] MEDS: D5W/0.45% SODIUM CHLORIDE 1,000 ML IV SCH (05:20)
[2020-04-01] MEDS: SODIUM CHLORIDE 0.9% INJ 10 ML SYR IV SCH ×3 (05:20→20:52)
[2020-04-01] MEDS ORDERED: ALPRAZolam 0.5 MG TAB PO ONE (05:30)
[2020-04-01 05:41] LABS: BASO # 0.1 10^3/uL (0.0-0.2); BASO % 0.3 % (0.0-1.0); EOS % 0.1 % (0.0-3.0); HEMATOCRIT 36.7 % (42.0-52.0); HEMOGLOBIN 12.4 g/dl (13.5-17.5); LYMPH # 0.7 10^3/uL (1.5-5.0); LYMPH % 2.9 % (24.0-44.0); MEAN CORPUSCULAR HEMOGLOBIN 30.3 pg (27.0-33.0); MEAN CORPUSCULAR HGB CONC 33.8 g/dl (32.0-36.5); MEAN CORPUSCULAR VOLUME 89.7 fl (80.0-96.0); MONO # 0.9 10^3/uL (0.0-0.8); MONO % 4.2 % (0.0-5.0); NEUTROPHILS # 20.8 10^3/uL (1.5-8.5); NEUTROPHILS % 92.1 % (36.0-66.0); RED BLOOD COUNT 4.09 10^6/uL (4.30-6.10); WHITE BLOOD COUNT 22.5 10^3/uL (4.0-10.0)
[2020-04-01 05:43] LABS: PLATELET COUNT, AUTOMATED 41 10^3/uL (150-450)
[2020-04-01] MEDS ORDERED: VANCOMYCIN HCL 1,000 MG, VIAL MATE ADAPTER 1 EACH in D5W 250 ML IV SCH (06:00)
[2020-04-01] MEDS: IPRATROPIUM 0.5MG/ALBUTEROL 2.5MG INH SOL UD 3ML (DUONEB) NEB PRN (06:04)
[2020-04-01 06:05] LABS: BILIRUBIN,TOTAL 0.9 MG/DL (0.2-1.0); CREATININE FOR GFR 1.41 MG/DL (0.70-1.30); POTASSIUM SERUM 3.2 MEQ/L (3.5-5.1); TOTAL PROTEIN 4.7 GM/DL (6.4-8.2); VANCOMYCIN RANDOM 9.3 UG/ML
[2020-04-01] MEDS: KCL 10MEQ/100ML SWI (KRUN) 10 MEQ in IV 1 EA IV SCH ×2 (06:34→08:04)
[2020-04-01] MEDS: REMEDY PHYTOPLEX Z-GUARD PASTE 113GM TUBE (FROM STOREROOM PRODUCT) TOP SCH ×3 (08:04→20:52)
[2020-04-01] MEDS ORDERED: POTASSIUM CHLORIDE 10 MEQ SR TABLET PO ONE (10:00)
[2020-04-01 14:04] LABS: ABG BASE EXCESS -7.6 (-2.0-2.0); ABG HCO3 13.2 MEQ/L (22.0-26.0); ABG O2 SATURATION 94.3 % (95.0-99.0); ABG PARTIAL PRESSURE O2 65.4 mmHg (75.0-100.0); ABG STANDARD HCO3 18.3 MEQ/L (22.0-26.0); ABG TOTAL CO2 13.8 MEQ/L (23.0-31.0); ABG pH (ARTERIAL) 7.482 UNITS (7.350-7.450)
[2020-04-01 14:07] LABS: ABG PARTIAL PRESSURE CO2 18.1 mmHg (35.0-45.0)
[2020-04-01] MEDS: hydrOXYzine 25 MG TAB PO PRN ×2 (14:12→21:59)
[2020-04-01] MEDS: ACETAMINOPHEN TAB 650MG DOSE (2X325MG) PO PRN (14:13)
[2020-04-01 14:50] LABS: HEMOGLOBIN 12.9 g/dl (13.5-17.5); MEAN CORPUSCULAR HEMOGLOBIN 29.7 pg (27.0-33.0); MEAN CORPUSCULAR HGB CONC 33.1 g/dl (32.0-36.5); MEAN CORPUSCULAR VOLUME 89.9 fl (80.0-96.0); RED BLOOD COUNT 4.34 10^6/uL (4.30-6.10); WHITE BLOOD COUNT 18.5 10^3/uL (4.0-10.0)
[2020-04-01 14:51] LABS: PLATELET COUNT, AUTOMATED 44 10^3/uL (150-450)
[2020-04-01 15:17] LABS: ALBUMIN 2.2 GM/DL (3.2-5.2); BILIRUBIN,TOTAL 1.1 MG/DL (0.2-1.0); CALCIUM LEVEL 7.2 MG/DL (8.8-10.2); CREATININE FOR GFR 1.39 MG/DL (0.70-1.30); GLOMERULAR FILTRATION RATE 51.8 (>35); MAGNESIUM LEVEL 2.1 MG/DL (1.8-2.4); POTASSIUM SERUM 3.5 MEQ/L (3.5-5.1); TOTAL PROTEIN 5.1 GM/DL (6.4-8.2)
[2020-04-01 15:19] LABS: LYMPHOCYTES 4 % (16-44); MONOCYTES 5 % (0-5); NEUTROPHILS 90 % (28-66)
[2020-04-01 15:20] LABS: PLATELET ESTIMATE MARKED DECREASE (NORMAL)
[2020-04-01] MEDS: NS 1,000 ML IV SCH (15:58)
--- NOTE | 2020-04-01 16:05 | IPNPDOC ---
Text Note Date of Service The patient was seen on 04/01/20. NOTE Subjective: Patient is an 84-year-old male with a PMHx of Dementia, HTN, Prostate CA (s/p radiation therapy), Hearing loss and Vertigo who presented to the [facility] as a transfer from [facility] for suspected urinary tract infection causing sepsis. Upon arrival, patient was tachypneic, tachycardic, febrile and was admitted to intensive care unit. Patient was seen and examined at the bedside. Currently patient reports that he feels relatively well. Denies any chest pain, shortness of breath, palpitations, nausea, vomiting, abdominal pain, diarrhea or constipation. Objective: Vitals (See below) General: Lying in bed, appears short of breath but denies any pain and reports he's comfortable, Awake / Alert HEENT: NC, AT CVS: RRR, +S1S2 Lungs: Fair air entry b/l, no rhonchi or rales, mild wheezing diffusely Abdomen: Soft, abdomen, remains nondistended and nontender Extremities: No evidence of edema, - Calf tenderness Imaging: CT Chest impression: 1. Atelectasis and infiltrate right posterior lung base. 2. 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 3. 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 4. Small right pleural effusion. 5. Severe elevation of the right hemidiaphragm and this could be secondary to paralysis of the right hemidiaphragm. CT abdomen/pelvis impression: 1. Limited evaluation of the enteric system with scattered diverticulosis including diverticular disease at the hepatic flexure with possible diver ticulitis. Evaluation is limited due to motion artifact. No evidence for bowel obstruction or perforation. 2. 2 chronic appearing focal saccular infrarenal abdominal aortic aneurysms measuring 3.6 cm and 3.7 cm maximal diameter each at the level of the left kidney and aortic rim. 3. Lung bases suggest pulmonary vascular congestion with pulmonary vascular engorgement and associated bibasilar atelectasis with small pleural effusions (right greater than left). Assessment and plan: Sepsis 2/2 bacteremia - possibly 2/2 UTI, possibly 2/2 intra-abdominal etiology - Currently is afebrile / hemodynamically stable - Procalcitonin 71.63; Lactic acid improving - Blood culture from external facility: Gram negative rods - Blood culture 03/30: Gram negative rods; Blood cultures 04/01: Pending - c/w Zosyn day #3; Will DC Vancomycin (MRSA screen negative) UTI - Urine culture from 02/26: consistent with E. Coli - [facility]-sensitive [facility] - UA concerning for infection - Urine culture 03/30: Negative - (See above) s/p Diarrhea with RLQ pain - possibly 2/2 diverticulitis - Currently patient does not experience any abdominal discomfort - No tenderness on palpation - C. Diff negative - Imaging noted above - c/w Zosyn (Day #3) Elevated troponin - likely 2/2 Demand ischemia; less likely 2/2 NSTEMI - No chest pain - EKG without any ischemic changes - Troponin have trended down - s/p Heparin drip Acute kidney injury on CKD3 - likely 2/2 severe hypotension - [facility] - Renal U/S shows likely medical renal disease, baseline Cr unknown - Avoid nephrotoxic agents - Restart IV fluid hydration AG metabolic acidosis - likely 2/2 Lactic acidosis - c/w IV fluid hydration Dyspnea - possibly 2/2 acidosis - Elevated d-dimer, unable to obtain CTA chest to r/o PE due to kidney function - Echocardiogram pending; complete; report pending - Chest CT results as noted above - ABG reveals hyperventilation - Will get CXR - c/w Inhaled therapy as ordered Thrombocytopenia - possibly 2/2 Sepsis - No evidence of further bleeding - Count improving - Will continue to follow Elevated LFT - Will continue to trend - Improving s/p Metabolic encephalopathy - likely 2/2 sepsis / hypotension DVT prophylaxis - c/w TEDs/Sequentials Disposition: - Pending clinical improvement Code Status: - DNR/DNI Critical care time: 60 minutes VS,Fishbone, I+O VS, Fishbone, I+O Laboratory Tests 04/01/20 05:20 04/01/20 14:22 Vital Signs Date Time Temp Pulse Resp B/P (MAP) Pulse Ox O2 Delivery O2 Flow Rate FiO2 04/01/20 14:20 98.8 112 38 152/80 (104) 92 Nasal Cannula 2.0 I&O- Last 24 Hours up to 6 AM 04/01/20 06:00 Intake Total 2900 ml Output Total 1670 ml Balance 1230 ml PHILIP LOPEZ MD Apr 01, 2020 16:05
--- NOTE | 2020-04-01 16:06 | REP ---
INDICATION: SOB COMPARISON: 03/30/2020 TECHNIQUE: Portable AP view of the chest FINDINGS: Chronic elevation to the right hemidiaphragm and diffuse chronic interstitial changes are again noted. Superimposed scattered bilateral infiltrates (right greater than left) along with suspected small pleural effusion represent a change from prior examination. No pneumothorax. Visualized portions of the mediastinum and cardiac silhouette are stable. Right-sided central venous catheter with tip in the SVC again noted. Skeletal structures grossly intact. IMPRESSION: Chronic changes with suspected superimposed bilateral airspace disease and small pleural effusion (right greater than left). <Electronically signed by Laz De La Rosa > 04/01/20 [id number]
[2020-04-01] MEDS ORDERED: FUROSEMIDE 40MG/4ML VIAL (J1940) IV ONE (22:45)
[2020-04-02] VITALS (18 sets, daily range): BP systolic 116–162; BP diastolic 59–102; O2SAT 82–96
[2020-04-02] MEDS: NS 1,000 ML IV SCH (04:09)
[2020-04-02] MEDS ORDERED: FUROSEMIDE 20MG/2ML VIAL (J1940) IV ONE (04:45)
[2020-04-02] MEDS: SODIUM CHLORIDE 0.9% INJ 10 ML SYR IV SCH ×3 (05:09→20:56)
[2020-04-02] MEDS: PIPERACILLIN/TAZOBACTAM SOD 4.5 GM in D5W MINI-BAG PLUS 50 ML IV SCH (05:09)
[2020-04-02 05:48] LABS: BASO % 0.4 % (0.0-1.0); EOS # 0.1 10^3/uL (0.0-0.5); EOS % 0.5 % (0.0-3.0); HEMATOCRIT 40.6 % (42.0-52.0); HEMOGLOBIN 13.8 g/dl (13.5-17.5); LYMPH # 0.9 10^3/uL (1.5-5.0); LYMPH % 7.6 % (24.0-44.0); MEAN CORPUSCULAR HEMOGLOBIN 30.1 pg (27.0-33.0); MEAN CORPUSCULAR VOLUME 88.6 fl (80.0-96.0); MONO % 9.2 % (0.0-5.0); NEUTROPHILS # 9.1 10^3/uL (1.5-8.5); RED BLOOD COUNT 4.58 10^6/uL (4.30-6.10); WHITE BLOOD COUNT 11.2 10^3/uL (4.0-10.0)
[2020-04-02 05:49] LABS: PLATELET COUNT, AUTOMATED 52 10^3/uL (150-450)
[2020-04-02 05:55] LABS: ALBUMIN 2.2 GM/DL (3.2-5.2); BILIRUBIN,TOTAL 1.8 MG/DL (0.2-1.0); CALCIUM LEVEL 7.7 MG/DL (8.8-10.2); CREATININE FOR GFR 1.45 MG/DL (0.70-1.30); GLOMERULAR FILTRATION RATE 49.4 (>35); POTASSIUM SERUM 3.1 MEQ/L (3.5-5.1); TOTAL PROTEIN 5.5 GM/DL (6.4-8.2)
[2020-04-02] MEDS ORDERED: POTASSIUM CHLORIDE 10 MEQ SR TABLET PO ONE ×3 (08:00→13:00)
[2020-04-02] MEDS: ACETAMINOPHEN TAB 650MG DOSE (2X325MG) PO PRN (08:13)
[2020-04-02] MEDS: hydrOXYzine 25 MG TAB PO PRN ×2 (08:14→16:43)
--- NOTE | 2020-04-02 08:20 | REP ---
INDICATION: sob COMPARISON: 04/01/2020 TECHNIQUE: Portable AP view of the chest FINDINGS: Right central venous catheter with tip in the SVC. Stable chronic interstitial changes and elevation to the right hemidiaphragm. Superimposed pulmonary vascular congestion as well as patchy scattered infiltrates and pleural effusions (right greater left) appear increased. IMPRESSION: Increased evidence for pulmonary vascular congestion and bilateral airspace disease with small/moderate pleural effusions (right greater than left). <Electronically signed by Laz De La Rosa > 04/02/20 0816
[2020-04-02] MEDS: FUROSEMIDE 20MG/2ML VIAL (J1940) IV SCH ×2 (08:54→16:44)
[2020-04-02 09:02] LABS: CENTRAL VEN BASE EXCESS -1.3
[2020-04-02] MEDS: REMEDY PHYTOPLEX Z-GUARD PASTE 113GM TUBE (FROM STOREROOM PRODUCT) TOP SCH ×3 (09:25→20:58)
[2020-04-02 10:24] LABS: VENOUS BASE EXCESS -1.3 (-2.0-2.0); VENOUS HCO3 21.5 MEQ/L (23.0-27.0); VENOUS PARTIAL PRESSURE O2 51.7 mmHg (30.0-50.0); VENOUS PH 7.458 UNITS (7.330-7.430); VENOUS TOTAL CO2 22.4 MEQ/L (24.0-28.0)
[2020-04-02 10:25] LABS: VENOUS O2 SATURATION 88.9 % (60.0-80.0); VENOUS STANDARD HCO3 23.1 MEQ/L
--- NOTE | 2020-04-02 10:47 | IPNPDOC ---
Text Note Date of Service The patient was seen on 04/02/20. NOTE Subjective: Patient is an 84-year-old male with a PMHx of Dementia, HTN, Prostate CA (s/p radiation therapy), Hearing loss and Vertigo who presented to the [facility] as a transfer from [facility] for suspected urinary tract infection causing sepsis. Upon arrival, patient was tachypneic, tachycardic, febrile and was admitted to intensive care unit. Patient was seen and examined at the bedside. Patient does not appear to be in distress, but is breathing rapidly. He denies any abdominal pain, N/V or constipation. He is noted to have diarrhea yesterday and has had significant diuresis after receiving Lasix. Denies any chest pain, reports he has some shortness of breath, denies any cough. Objective: Vitals (See below) General: Lying in bed, reports shortness of breath, awake / alert HEENT: NC, AT CVS: +S1S2 Lungs: Fair air entry b/l, crackles at right lung, no wheezing appreciated, no rhonchi Abdomen: Soft, again without distention, no tenderness Extremities: LE are without any edema, - Calf tenderness Imaging: CT Chest impression: 1. Atelectasis and infiltrate right posterior lung base. 2. 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 3. 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 4. Small right pleural effusion. 5. Severe elevation of the right hemidiaphragm and this could be secondary to paralysis of the right hemidiaphragm. CT abdomen/pelvis impression: 1. Limited evaluation of the enteric system with scattered diverticulosis including diverticular disease at the hepatic flexure with possible diverticulitis. Evaluation is limited due to motion artifact. No evidence for bowel obstruction or perforation. 2. 2 chronic appearing focal saccular infrarenal abdominal aortic aneurysms measuring 3.6 cm and 3.7 cm maximal diameter each at the level of the left kidney and aortic rim. 3. Lung bases suggest pulmonary vascular congestion with pulmonary vascular engorgement and associated bibasilar atelectasis with small pleural effusions (right greater than left). Assessment and plan: Sepsis 2/2 bacteremia - possibly 2/2 UTI, possibly 2/2 intra-abdominal etiology (Diverticulitis) - Low grade fevers noted / hemodynamically stable - Procalcitonin 71.63; Lactic acid improving - Blood culture from external facility: Gram negative rods - Blood culture 03/30: Gram negative rods; Blood cultures 04/01: Negative at 24 hours - Will start Ceftriaxone; Will DC Zosyn; s/p Vancomycin (MRSA screen negative) - Antibiotic Day #4 UTI - Urine culture from 02/26: consistent with E. Coli - hernandez-sensitive ([facility]) - UA concerning for infection - Urine culture 03/30: Negative - (See above) s/p Diarrhea with RLQ pain - possibly 2/2 diverticulitis - Currently patient does not experience any abdominal discomfort - No tenderness on palpation - C. Diff negative - Imaging noted above - c/w Antibiotics (See above) Elevated troponin - likely 2/2 Demand ischemia; less likely 2/2 NSTEMI - No chest pain - EKG without any ischemic changes - Troponin have trended down - s/p Heparin drip Shortness of breath - likely 2/2 fluid overload - Elevated d-dimer, unable to obtain CTA chest to r/o PE due to kidney function - ABG reveals hyperventilation - Echocardiogram pending; complete; report pending - Chest CT results as noted above - CXR 04/02: Increased evidence for pulmonary vascular congestion and bilateral airspace disease with small/moderate pleural effusions (right greater than left). - s/p IV fluids - Strict ins/outs, daily weights, head of bed elevation - c/w Inhaled therapy as ordered - Will provide Lasix 20 IV [id number] Acute kidney injury on CKD3 - likely 2/2 severe hypotension - Cr baseline [facility] 1.3[facility]1.4 [facility] - Renal U/S shows likely medical renal disease, baseline Cr unknown - Avoid nephrotoxic agents - s/p IV fluids s/p AG metabolic acidosis - s/p IV fluids Lactic acidosis - possibly 2/2 work of breathing - c/w Diuresis (See above) Thrombocytopenia - possibly 2/2 Sepsis - No evidence of further bleeding - Count improving - Will continue to follow Elevated LFT - Will continue to trend - Will check Hepatic US - Improving s/p Metabolic encephalopathy - likely 2/2 sepsis / hypotension DVT prophylaxis - c/w TEDs/Sequentials Disposition: - Pending clinical improvement Code Status: - DNR/DNI VS,Fishbone, I+O VS, Fishbone, I+O Laboratory Tests 04/01/20 14:22 04/02/20 05:10 Vital Signs Date Time Temp Pulse Resp B/P (MAP) Pulse Ox O2 Delivery O2 Flow Rate FiO2 04/02/20 08:00 2.0 04/02/20 07:53 100.3 58 34 162/86 (111) 94 04/02/20 04:00 Nasal Cannula I&O- Last 24 Hours up to 6 AM 04/02/20 06:00 Intake Total 2820 ml Output Total 6715 ml Balance -3895 ml PHILIP LOPEZ MD Apr 02, 2020 10:47
[2020-04-02 10:59] LABS: CK-MB VALUE MASS 2.1 NG/ML (<3.6); MB/CK RELATIVE INDEX 0.51 (< OR =4); TROPONIN I 0.39 NG/ML (< 0.10)
[2020-04-02 12:51] LABS: CREATININE FOR GFR 1.53 MG/DL (0.70-1.30); GLOMERULAR FILTRATION RATE 46.4 (>35); POTASSIUM SERUM 3.4 MEQ/L (3.5-5.1)
[2020-04-02] MEDS: cefTRIAXone SOD 2 GM in D5W MINI-BAG PLUS 50 ML IV SCH (13:46)
[2020-04-02] MEDS: POTASSIUM CHLORIDE 10 MEQ SR TABLET PO SCH ×2 (13:48→16:43)
--- NOTE | 2020-04-02 16:00 | REP ---
INDICATION: Elevated bilirubin COMPARISON: None. TECHNIQUE: Real time patel scale ultrasound examination using curved array transducer. FINDINGS: Liver demonstrates coarsened echotexture without focal hepatic lesion identified. Pancreas is incompletely evaluated due to interposed bowel gas but visualized portions appear normal. The gallbladder is normal and without gallstones, wall thickening, or pericholecystic fluid. No biliary ductal dilatation is appreciated and the common bile duct measures 3.9 mm diameter. Right kidney is echogenic and normal in reniform shape without hydronephrosis measuring 12.0 x 5.5 x 5.6 cm. No ascites in the visualized right upper quadrant. IMPRESSION: 1. Hepatic echotexture suggesting underlying hepatosteatosis and/or hepatocellular disease. No focal hepatic lesion identified. No a paddle megaly. <Electronically signed by Laz De La Rosa > 04/02/20 2650
[2020-04-02 17:38] LABS: CALCIUM LEVEL 8.2 MG/DL (8.8-10.2); CREATININE FOR GFR 1.51 MG/DL (0.70-1.30); GLOMERULAR FILTRATION RATE 47.1 (>35); MAGNESIUM LEVEL 1.9 MG/DL (1.8-2.4); POTASSIUM SERUM 3.6 MEQ/L (3.5-5.1)
[2020-04-02] MEDS ORDERED: NS 1,000 ML IV ONE (18:15)
[2020-04-02] MEDS ORDERED: DIGOXIN INJ 0.5 MG/2 ML AMP (J1160) IV STA (18:46)
--- NOTE | 2020-04-02 19:31 | ECGEPIP ---
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
--- NOTE | 2020-04-02 19:37 | ECGEPIP ---
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
[2020-04-02] MEDS: LACTOBACILLUS ACIDOPHILUS CAP (BACID) PO SCH (20:57)
[2020-04-03] VITALS (17 sets, daily range): BP systolic 127–157; BP diastolic 70–84; O2SAT 93–97
[2020-04-03] MEDS: DIGOXIN 0.25 MG TAB PO SCH ×3 (00:08→12:44)
[2020-04-03] MEDS: SODIUM CHLORIDE 0.9% INJ 10 ML SYR IV SCH ×3 (06:28→20:28)
[2020-04-03 09:11] LABS: BASO # 0.1 10^3/uL (0.0-0.2); BASO % 0.7 % (0.0-1.0); EOS # 0.1 10^3/uL (0.0-0.5); EOS % 1.2 % (0.0-3.0); HEMATOCRIT 42.7 % (42.0-52.0); HEMOGLOBIN 14.5 g/dl (13.5-17.5); LYMPH # 1.2 10^3/uL (1.5-5.0); LYMPH % 10.5 % (24.0-44.0); MEAN CORPUSCULAR VOLUME 88.4 fl (80.0-96.0); MONO % 8.4 % (0.0-5.0); NEUTROPHILS % 76.5 % (36.0-66.0); RED BLOOD COUNT 4.83 10^6/uL (4.30-6.10); WHITE BLOOD COUNT 11.7 10^3/uL (4.0-10.0)
[2020-04-03 09:15] LABS: PLATELET COUNT, AUTOMATED 69 10^3/uL (150-450)
[2020-04-03 09:35] LABS: ALBUMIN 2.1 GM/DL (3.2-5.2); BILIRUBIN,TOTAL 1.2 MG/DL (0.2-1.0); CALCIUM LEVEL 7.7 MG/DL (8.8-10.2); CREATININE FOR GFR 1.48 MG/DL (0.70-1.30); GLOMERULAR FILTRATION RATE 48.2 (>35); POTASSIUM SERUM 3.6 MEQ/L (3.5-5.1); TOTAL PROTEIN 5.6 GM/DL (6.4-8.2)
[2020-04-03] MEDS: LACTOBACILLUS ACIDOPHILUS CAP (BACID) PO SCH ×2 (09:55→20:28)
[2020-04-03] MEDS: REMEDY PHYTOPLEX Z-GUARD PASTE 113GM TUBE (FROM STOREROOM PRODUCT) TOP SCH ×3 (09:56→20:28)
--- NOTE | 2020-04-03 11:07 | IPNPDOC ---
Text Note Date of Service The patient was seen on 04/03/20. NOTE Subjective: Patient is an 84-year-old male with a PMHx of Dementia, HTN, Prostate CA (s/p radiation therapy), Hearing loss and Vertigo who presented to the [facility] as a transfer from [facility] for suspected urinary tract infection causing sepsis. Upon arrival, patient was tachypneic, tachycardic, febrile and was admitted to intensive care unit. Patient was seen and examined at the bedside. Currently patient reports an uneventful evening. He denies any chest pain, shortness breath or palpitations. Has not experienced any nausea, vomiting, abdominal pain. Reports that he hasn't experience any diarrhea this morning. Denies any urinary discomfort. Patient was working with physical therapy this later today. Objective: Vitals (See below) General: Lying in bed, appears to be comfortable, awake, alert and oriented 3 HEENT: NC, AT CVS: +S1S2 Lungs: Air entry is fair bilaterally without any auscultated rhonchi, crackles or wheezing Abdomen: Abdomen remains soft without any distention or tenderness Extremities: No edema of lower extremities, - Calf tenderness Imaging: CT Chest impression: 1. Atelectasis and infiltrate right posterior lung base. 2. 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 3. 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 4. Small right pleural effusion. 5. Severe elevation of the right hemidiaphragm and this could be secondary to p aralysis of the right hemidiaphragm. CT abdomen/pelvis impression: 1. Limited evaluation of the enteric system with scattered diverticulosis including diverticular disease at the hepatic flexure with possible diverticulitis. Evaluation is limited due to motion artifact. No evidence for bowel obstruction or perforation. 2. 2 chronic appearing focal saccular infrarenal abdominal aortic aneurysms measuring 3.6 cm and 3.7 cm maximal diameter each at the level of the left kidney and aortic rim. 3. Lung bases suggest pulmonary vascular congestion with pulmonary vascular engorgement and associated bibasilar atelectasis with small pleural effusions (right greater than left). CXR 04/02: Increased evidence for pulmonary vascular congestion and bilateral airspace disease with small/moderate pleural effusions (right greater than left). Liver US 04/02: Hepatic echotexture suggesting underlying hepatosteatosis and/or hepatocellular disease. No focal hepatic lesion identified. No a paddle megaly. CXR 04/02: Increased evidence for pulmonary vascular congestion and bilateral airspace disease with small/moderate pleural effusions (right greater than left). Assessment and plan: Sepsis 2/2 bacteremia - possibly 2/2 UTI, possibly 2/2 intra-abdominal etiology (Diverticulitis) - Low grade fevers noted / hemodynamically stable - Procalcitonin 71.63; Lactic acid improving - Blood culture from external facility: Gram negative rods - Blood culture 03/30: Gram negative rods; Blood cultures 04/01: Negative at 48 hours - c/w Ceftriaxone; s/p Zosyn and Vancomycin (MRSA screen negative) - Antibiotic Day #5 UTI - Urine culture from 02/26: consistent with E. Coli - hernandez-sensitive ([facility]) - UA concerning for infection - Urine culture 03/30: Negative - (See above) s/p Diarrhea with RLQ pain - possibly 2/2 diverticulitis - Currently patient does not experience any abdominal discomfort - No tenderness on palpation - C. Diff negative - Imaging noted above - c/w Antibiotics (See above) A. fib with RVR - EKG has revealed A. fib, currently improved - s/p Digoxin loading dose - c/w Digoxin PO; will check Digoxin level in AM - Patient will require anticoagulation; however had hematuria / oozing from TLC occur with Heparin drip Elevated troponin - likely 2/2 Demand ischemia; less likely 2/2 NSTEMI - No chest pain - EKG without any ischemic changes - Troponin have trended down - s/p Heparin drip s/p Acute hypoxic respiratory failure / Shortness of breath - likely 2/2 fluid overload; however initially possibly 2/2 acidosis - On admission patient was saturating in the 80s on room air, RR of 38, using accessory muscle - Current is saturating well and can be titrated off oxygen and onto room air - Elevated d-dimer, unable to obtain CTA chest to r/o PE due to kidney function - ABG had revealed hyperventilation - Echocardiogram pending; complete; report pending - Chest CT results as noted above - s/p IV fluids - Strict ins/outs, daily weights, head of bed elevation - c/w Inhaled therapy as ordered - s/p Lasix 20 IV [id number] s/p Acute kidney injury on CKD3 - likely 2/2 severe hypotension - Cr baseline of 1.3-1.4 ([facility]) - Renal U/S shows likely medical renal disease, baseline Cr unknown - Avoid nephrotoxic agents - s/p IV fluids s/p AG metabolic acidosis - s/p IV fluids s/p Lactic acidosis - possibly 2/2 work of breathing Thrombocytopenia - possibly 2/2 Sepsis - No evidence of further bleeding - Continues to improve - Will continue to follow Elevated LFT - Remains stable - Improving s/p Metabolic encephalopathy - likely 2/2 sepsis / hypotension DVT prophylaxis - c/w TEDs/Sequentials Disposition: - Pending clinical improvement Code Status: - DNR/DNI VS,Fishbone, I+O VS, Fishbone, I+O Laboratory Tests 04/02/20 11:53 04/02/20 17:00 04/03/20 08:39 Vital Signs Date Time Temp Pulse Resp B/P (MAP) Pulse Ox O2 Delivery O2 Flow Rate FiO2 04/03/20 08:00 97.8 95 18 157/84 (108) 100 Nasal Cannula 2.0 I&O- Last 24 Hours up to 6 AM 04/03/20 06:00 Intake Total 1750 ml Output Total 3050 ml Balance -1300 ml PHILIP LOPEZ MD Apr 03, 2020 11:07
--- NOTE | 2020-04-03 11:14 | ECHO ---
DATE OF PROCEDURE: 03/30/2020 Age: 84 Gender: Female Height: 175 cm Weight: 77 kg REFERRING PHYSICIAN: Katherine Archuleta DO INDICATION: Sepsis. MEASUREMENTS: 2D Measurements: Intraventricular septum 1.2 cm Posterior wall 1.12 cm Left ventricle diastole 4.7 cm Left atrium 3.7 cm Aortic root 3.6 cm Inferior vena cava 1.9 cm with more than 50% respiratory variation Doppler Measurements: No aortic regurgitation No aortic stenosis Trace mitral regurgitation No mitral stenosis Very mild tricuspid regurgitation Trace pulmonic regurgitation Aortic valve velocity 113 cm/s LVOT velocity 75.1 cm/s Mitral E velocity 67.7 cm/s Mitral A velocity 65.6 cm/s Mitral deceleration time 185 msec Estimated right ventricular systolic pressure 33-38 mmHg Estimated right atrial pressure of 5-10 mmHg Trace pulmonic regurgitation Pulmonary acceleration 103-132 msec MITRAL ANNULAR TISSUE DOPPLER E prime septal 8.5 cm/s, E prime lateral 8.3 cm/s DESCRIPTION: Rhythm was sinus. Image quality was fair. This was a 2D, M-mode, color flow Doppler, and pulsed wave Doppler examination including mitral annular tissue Doppler. CONCLUSIONS: 1. Hyperdynamic left ventricle systolic function. Left ventricle ejection fraction 70% by visual estimate. Normal left ventricular (LV) size and wall thickness. Normal left ventricular (LV) diastolic function for age. No regional left ventricular (LV) wall motion abnormalities. 2. No pericardial effusion. 3. Normal right ventricle size and systolic function. 4. Suggestive of mild elevation of pulmonary artery systolic pressure. 5. Mild aortic valve sclerosis with a 3-cuspid aortic valve. 6. No vegetation. 7. Suggestive of normal central venous pressure (5-10 mmHg). MTDD
[2020-04-03] MEDS: cefTRIAXone SOD 2 GM in D5W MINI-BAG PLUS 50 ML IV SCH (14:46)
[2020-04-04] VITALS (11 sets, daily range): BP systolic 113–148; BP diastolic 64–80; O2SAT 89–96
[2020-04-04] MEDS: SODIUM CHLORIDE 0.9% INJ 10 ML SYR IV SCH ×3 (04:05→21:35)
[2020-04-04 08:11] LABS: BASO # 0.1 10^3/uL (0.0-0.2); BASO % 0.5 % (0.0-1.0); EOS # 0.3 10^3/uL (0.0-0.5); EOS % 1.7 % (0.0-3.0); HEMATOCRIT 40.5 % (42.0-52.0); LYMPH # 1.5 10^3/uL (1.5-5.0); LYMPH % 9.6 % (24.0-44.0); MEAN CORPUSCULAR HEMOGLOBIN 30.6 pg (27.0-33.0); MEAN CORPUSCULAR HGB CONC 34.6 g/dl (32.0-36.5); MEAN CORPUSCULAR VOLUME 88.4 fl (80.0-96.0); MONO # 0.9 10^3/uL (0.0-0.8); NEUTROPHILS # 12.1 10^3/uL (1.5-8.5); NEUTROPHILS % 80.2 % (36.0-66.0); RED BLOOD COUNT 4.58 10^6/uL (4.30-6.10); WHITE BLOOD COUNT 15.1 10^3/uL (4.0-10.0)
[2020-04-04 08:13] LABS: PLATELET COUNT, AUTOMATED 95 10^3/uL (150-450)
[2020-04-04 08:49] LABS: CALCIUM LEVEL 7.5 MG/DL (8.8-10.2); CREATININE FOR GFR 1.42 MG/DL (0.70-1.30); DIGOXIN LEVEL 1.1 NG/ML (0.5-2.0); GLOMERULAR FILTRATION RATE 50.6 (>35); POTASSIUM SERUM 4.1 MEQ/L (3.5-5.1); TOTAL PROTEIN 5.4 GM/DL (6.4-8.2)
--- NOTE | 2020-04-04 09:12 | IPNPDOC ---
Text Note Date of Service The patient was seen on 04/04/20. NOTE Subjective: Patient is an 84-year-old male with a PMHx of Dementia, HTN, Prostate CA (s/p radiation therapy), Hearing loss and Vertigo who presented to the [facility] as a transfer from [facility] for suspected urinary tract infection causing sepsis. Upon arrival, patient was tachypneic, tachycardic, febrile and was admitted to intensive care unit. Patient was seen and examined at the bedside. Patient is sitting up in bed eating breakfast, does not appear to be in any discomfort. Reports that he does not experience any chest pain, abdominal pain, nausea, vomiting, and has not had any further diarrhea. Patient reports his breathing is still slightly shallow but denies cough. Patient has a Segal catheter still in place. Objective: Vitals (See below) General: Sitting up in bed, no acute distress, comfortable, AAOx3 HEENT: NC, AT CVS: +S1S2 Lungs: Air entry appears to be fair bilaterally without any evidence of rhonchi, wheezing or crackles Abdomen: Again abdomen remains soft without any distention or tenderness Extremities: Lower extremities are free of any pitting edema, - Calf tenderness Imaging: CT Chest impression: 1. Atelectasis and infiltrate right posterior lung base. 2. 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 3. 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 4. Small right pleural effusion. 5. Severe elevation of the right hemidiaphragm and this could be secondary to paralysis of the right hemidiaphragm. CT abdomen/pelvis impression: 1. Limited evaluation of the enteric system with scattered diverticulosis including diverticular disease at the hepatic flexure with possible diverticulitis. Evaluation is limited due to motion artifact. No evidence for bowel obstruction or perforation. 2. 2 chronic appearing focal saccular infrarenal abdominal aortic aneurysms measuring 3.6 cm and 3.7 cm maximal diameter each at the level of the left kidney and aortic rim. 3. Lung bases suggest pulmonary vascular congestion with pulmonary vascular engorgement and associated bibasilar atelectasis with small pleural effusions (right greater than left). CXR 04/02: Increased evidence for pulmonary vascular congestion and bilateral airspace disease with small/moderate pleural effusions (right greater than left). Liver US 04/02: Hepatic echotexture suggesting underlying hepatosteatosis and/or hepatocellular disease. No focal hepatic lesion identified. No a paddle megaly. CXR 04/02: Increased evidence for pulmonary vascular congestion and bilateral airspace disease with small/moderate pleural effusions (right greater than left). ECHO (Resulted 04/02): 1. Hyperdynamic left ventricle systolic function. Left ventricle ejection fraction 70% by visual estimate. Normal left ventricular (LV) size and wall thickness. Normal left ventricular (LV) diastolic function for age. No regional left ventricular (LV) wall motion abnormalities. 2. No pericardial effusion. 3. Normal right ventricle size and systolic function. 4. Suggestive of mild elevation of pulmonary artery systolic pressure. 5. Mild aortic valve sclerosis with a 3-cuspid aortic valve. 6. No vegetation. 7. Suggestive of normal central venous pressure (5-10 mmHg). Assessment and plan: Sepsis 2/2 bacteremia - possibly 2/2 UTI, possibly 2/2 intra-abdominal etiology (Diverticulitis) - Hemodynamically stable and afebrile for greater than 48 hours - Procalcitonin 71.63 - Blood culture from external facility: Gram negative rods - Blood culture 03/30: Escherichia coli; Blood cultures 04/01: Negative at 48 hours - c/w Ceftriaxone; s/p Zosyn and Vancomycin (MRSA screen negative) - Antibiotic Day #6 UTI - Urine culture from 02/26: consistent with E. Coli - hernandez-sensitive ([facility]) - UA concerning for infection - Urine culture 03/30: Negative - (See above) s/p Diarrhea with RLQ pain - possibly 2/2 diverticulitis - Patient denies any abdominal discomfort, nausea, vomiting or any further diarrhea - Abdomen remains nontender - C. Diff negative - Imaging noted above - c/w Antibiotics (See above) A. fib with RVR - Patient currently is rate controlled - EKG has revealed A. fib, currently improved - s/p Digoxin loading dose - Digoxin level noted - TSH pending - Echocardiogram noted above - c/w Digoxin - Patient will require anticoagulation; however had hematuria / oozing from TLC occur with Heparin drip; anticipate starting anticoagulation within the next 24 hours s/p Elevated troponin - likely 2/2 Demand ischemia; less likely 2/2 NSTEMI - No chest pain - Echocardiogram noted above - EKG without any ischemic changes - Troponin have trended down - s/p Heparin drip s/p Acute hypoxic respiratory failure / Shortness of breath - likely 2/2 fluid overload; however initially possibly 2/2 acidosis - On admission patient was saturating in the 80s on room air, RR of 38, using accessory muscle - Patient's saturations have remained stable on room air / up to 2 L NC with ambulation - Elevated d-dimer, unable to obtain CTA chest to r/o PE due to kidney function - ABG had revealed hyperventilation - Echocardiogram noted above - Chest CT results as noted above - s/p IV fluids - Strict ins/outs, daily weights, head of bed elevation - c/w Inhaled therapy as ordered - s/p Lasix 20 IV [id number] s/p Acute kidney injury on CKD3 - likely 2/2 severe hypotension - Cr baseline of 1.3-1.4 ([facility]) - Renal U/S shows likely medical renal disease, baseline Cr unknown - Avoid nephrotoxic agents - s/p IV fluids s/p AG metabolic acidosis - s/p IV fluids s/p Lactic acidosis - possibly 2/2 work of breathing Thrombocytopenia - possibly 2/2 Sepsis - No evidence of further bleeding - Slowly improving Elevated LFT - Remains stable - Will check hepatitis profile - Improving s/p Metabolic encephalopathy - likely 2/2 sepsis / hypotension DVT prophylaxis - c/w TEDs/Sequentials Disposition: - Pending clinical improvement Code Status: - DNR/DNI VS,Fishbone, I+O VS, Fishbone, I+O Laboratory Tests 04/04/20 07:48 Vital Signs Date Time Temp Pulse Resp B/P (MAP) Pulse Ox O2 Delivery O2 Flow Rate FiO2 04/04/20 07:49 98.5 89 20 130/79 (96) 97 Nasal Cannula 2.0 I&O- Last 24 Hours up to 6 AM 04/04/20 06:00 Intake Total 1780 ml Output Total 1400 ml Balance 380 ml PHILIP LOPEZ MD Apr 04, 2020 09:12
[2020-04-04] MEDS: LACTOBACILLUS ACIDOPHILUS CAP (BACID) PO SCH ×2 (09:49→21:33)
[2020-04-04] MEDS: REMEDY PHYTOPLEX Z-GUARD PASTE 113GM TUBE (FROM STOREROOM PRODUCT) TOP SCH ×3 (09:51→21:34)
[2020-04-04] MEDS: DIGOXIN 0.125 MG TAB PO SCH (09:51)
[2020-04-04] MEDS: cefTRIAXone SOD 2 GM in D5W MINI-BAG PLUS 50 ML IV SCH (14:37)
[2020-04-04 15:19] LABS: HEPATITIS B SURFACE ANTIGEN NEGATIVE (NEGATIVE)
[2020-04-04 15:46] LABS: HEPATITIS B CORE ANTIBODY IGM NEGATIVE (NEGATIVE)
[2020-04-04 15:49] LABS: HEPATITIS A ANTIBODY IGM NEGATIVE (NEGATIVE)
[2020-04-05] MEDS: SODIUM CHLORIDE 0.9% INJ 10 ML SYR IV SCH ×3 (05:30→21:16)
[2020-04-05 06:00] VITALS: BP 140/97
[2020-04-05] MEDS ORDERED: metroNIDAZOLE (FLAGYL) 500MG TABLET PO SCH (06:00)
[2020-04-05 06:27] LABS: BASO # 0.1 10^3/uL (0.0-0.2); BASO % 0.4 % (0.0-1.0); EOS # 0.3 10^3/uL (0.0-0.5); EOS % 1.6 % (0.0-3.0); HEMATOCRIT 38.8 % (42.0-52.0); HEMOGLOBIN 13.3 g/dl (13.5-17.5); LYMPH # 1.7 10^3/uL (1.5-5.0); LYMPH % 8.9 % (24.0-44.0); MEAN CORPUSCULAR HEMOGLOBIN 30.3 pg (27.0-33.0); MEAN CORPUSCULAR HGB CONC 34.3 g/dl (32.0-36.5); MEAN CORPUSCULAR VOLUME 88.4 fl (80.0-96.0); MONO # 0.7 10^3/uL (0.0-0.8); MONO % 3.5 % (0.0-5.0); NEUTROPHILS # 15.9 10^3/uL (1.5-8.5); PLATELET COUNT, AUTOMATED 129 10^3/uL (150-450); RED BLOOD COUNT 4.39 10^6/uL (4.30-6.10); WHITE BLOOD COUNT 18.9 10^3/uL (4.0-10.0)
[2020-04-05 06:28] LABS: ALBUMIN 1.9 GM/DL (3.2-5.2); ALT/SGPT 109 U/L (12-78); BILIRUBIN,TOTAL 0.9 MG/DL (0.2-1.0); BLOOD UREA NITROGEN 27 MG/DL (7-18); CALCIUM LEVEL 7.5 MG/DL (8.8-10.2); CARBON DIOXIDE LEVEL 22 MEQ/L (21-32); CHLORIDE LEVEL 108 MEQ/L (98-107); CREATININE FOR GFR 1.16 MG/DL (0.70-1.30); GLOMERULAR FILTRATION RATE > 60.0 (>35); GLUCOSE, FASTING 139 MG/DL (70-100); POTASSIUM SERUM 3.3 MEQ/L (3.5-5.1); SODIUM LEVEL 138 MEQ/L (136-145); TOTAL PROTEIN 5.5 GM/DL (6.4-8.2)
[2020-04-05] MEDS ORDERED: POTASSIUM CHLORIDE 10 MEQ SR TABLET PO ONE (07:00)
[2020-04-05] MEDS: LACTOBACILLUS ACIDOPHILUS CAP (BACID) PO SCH ×2 (08:07→21:13)
[2020-04-05] MEDS: DIGOXIN 0.125 MG TAB PO SCH (08:08)
[2020-04-05] MEDS: REMEDY PHYTOPLEX Z-GUARD PASTE 113GM TUBE (FROM STOREROOM PRODUCT) TOP SCH ×3 (08:08→21:13)
--- NOTE | 2020-04-05 08:26 | REP ---
INDICATION: SOB COMPARISON: 04/02/2020 TECHNIQUE: Portable AP view of the chest FINDINGS: Evaluation is limited by portable technique, underpenetration and positioning. Chronic elevation to the right hemidiaphragm is again noted along with diffuse chronic interstitial changes. Previously identified right subclavian catheter appears to been removed. There is no evidence for pneumothorax. Subtle areas of atelectasis cannot be excluded. IMPRESSION: 1. No significant change from prior examination. 2. Previously noted right subclavian catheter peers to be removed. 3. Cannot exclude residual scattered atelectasis (right greater than left) and right effusion. <Electronically signed by Laz De La Rosa > 04/05/20 3210
--- NOTE | 2020-04-05 08:57 | IPNPDOC ---
Text Note Date of Service The patient was seen on 04/05/20. NOTE Subjective: Patient is an 84-year-old male with a PMHx of Dementia, HTN, Prostate CA (s/p radiation therapy), Hearing loss and Vertigo who presented to the [facility] as a transfer from [facility] for suspected urinary tract infection causing sepsis. Upon arrival, patient was tachypneic, tachycardic, febrile and was admitted to intensive care unit. Patient was seen and examined at the bedside. Patient reports that he has continued to experience some diarrhea yesterday has reported 3 loose bowel movements. Denies any chest pain, shortness of breath or palpitations. Has not experience any nausea or vomiting. Denies any abdominal pain. Has been to lerating his diet Objective: Vitals (See below) General: Laying in bed, appears to be comfortable, no acute distress, awake, alert and oriented 3 HEENT: NC, AT CVS: +S1S2 Lungs: Air entry appears to be fair bilaterally without any appreciable rhonchi, rales or wheezing Abdomen: On palpation, there does not appear to be any tenderness of his abdomen. No distention and remained soft Extremities: No edema of lower extremities, - Calf tenderness Imaging: CT Chest impression: 1. Atelectasis and infiltrate right posterior lung base. 2. 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 3. 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 4. Small right pleural effusion. 5. Severe elevation of the right hemidiaphragm and this could be secondary to paralysis of the right hemidiaphragm. CT abdomen/pelvis impression: 1. Limited evaluation of the enteric system with scattered diverticulosis inc luding diverticular disease at the hepatic flexure with possible diverticulitis. Evaluation is limited due to motion artifact. No evidence for bowel obstruction or perforation. 2. 2 chronic appearing focal saccular infrarenal abdominal aortic aneurysms measuring 3.6 cm and 3.7 cm maximal diameter each at the level of the left kidney and aortic rim. 3. Lung bases suggest pulmonary vascular congestion with pulmonary vascular engorgement and associated bibasilar atelectasis with small pleural effusions (right greater than left). CXR 04/02: Increased evidence for pulmonary vascular congestion and bilateral airspace disease with small/moderate pleural effusions (right greater than left). Liver US 04/02: Hepatic echotexture suggesting underlying hepatosteatosis and/or hepatocellular disease. No focal hepatic lesion identified. No a paddle megaly. CXR 04/02: Increased evidence for pulmonary vascular congestion and bilateral airspace disease with small/moderate pleural effusions (right greater than left). ECHO (Resulted 04/02): 1. Hyperdynamic left ventricle systolic function. Left ventricle ejection fraction 70% by visual estimate. Normal left ventricular (LV) size and wall thickness. Normal left ventricular (LV) diastolic function for age. No regional left ventricular (LV) wall motion abnormalities. 2. No pericardial effusion. 3. Normal right ventricle size and systolic function. 4. Suggestive of mild elevation of pulmonary artery systolic pressure. 5. Mild aortic valve sclerosis with a 3-cuspid aortic valve. 6. No vegetation. 7. Suggestive of normal central venous pressure (5-10 mmHg). Assessment and plan: Sepsis 2/2 bacteremia - possibly 2/2 UTI, possibly 2/2 intra-abdominal etiology (Diverticulitis) - Remains hemodynamically stable / Afebrile - Procalcitonin improving - Blood culture from external facility: Gram negative rods - Blood culture 03/30: Escherichia coli; Blood cultures 04/01: Negative at 72 hours - c/w Ceftriaxone and Flagyl; s/p Zosyn and Vancomycin (MRSA screen negative) - Antibiotic Day #7 UTI - Urine culture from 02/26: consistent with E. Coli - hernandez-sensitive ([facility]) - UA concerning for infection - Urine culture 03/30: Negative - (See above) Diarrhea; s/p RLQ pain - possibly 2/2 diverticulitis - Patient denies any abdominal discomfort, nausea, vomiting - Patient has reported diarrhea yesterday night - Abdomen agains remains nontender - C. Diff negative - Stool for occult blood - negative - Imaging noted above - c/w Antibiotics (See above) A. fib; s/p RVR - Patient currently is rate controlled - EKG has revealed A. fib, currently improved - s/p Digoxin loading dose - Digoxin level noted - TSH pending - Echocardiogram noted above - c/w Digoxin - Patient will require anticoagulation; however had hematuria / oozing from TLC occur with Heparin drip - Will re-evaluate starting anticoagulation s/p Elevated troponin - likely 2/2 Demand ischemia; less likely 2/2 NSTEMI - No chest pain - Echocardiogram noted above - EKG without any ischemic changes - Troponin have trended down - s/p Heparin drip s/p Acute hypoxic respiratory failure / Shortness of breath - likely 2/2 fluid overload; however initially possibly 2/2 acidosis - On admission patient was saturating in the 80s on room air, RR of 38, using accessory muscle - Patient's saturations have remained stable on room air / up to 2 L NC with ambulation - Elevated d-dimer, unable to obtain CTA chest to r/o PE due to kidney function - ABG had revealed hyperventilation - Echocardiogram noted above - Chest CT results as noted above - s/p IV fluids - Strict ins/outs, daily weights, head of bed elevation - c/w Inhaled therapy as ordered - s/p Lasix 20 IV [id number] s/p Acute kidney injury on CKD3 - likely 2/2 severe hypotension - Cr baseline of 1.3-1.4 ([facility]) - Renal U/S shows likely medical renal disease, baseline Cr unknown - Avoid nephrotoxic agents - s/p IV fluids s/p AG metabolic acidosis - s/p IV fluids s/p Lactic acidosis - possibly 2/2 work of breathing Thrombocytopenia - possibly 2/2 Sepsis - No evidence of further bleeding - Continues to improve Elevated LFT - Remains stable - Hepatitis profile negative - Improving s/p Metabolic encephalopathy - likely 2/2 sepsis / hypotension DVT prophylaxis - c/w TEDs/Sequentials Disposition: - Pending clinical improvement Code Status: - DNR/DNI VS,Abundiobone, I+O VS, Abundiobone, I+O Laboratory Tests 04/05/20 05:36 Vital Signs Date Time Temp Pulse Resp B/P (MAP) Pulse Ox O2 Delivery O2 Flow Rate FiO2 04/05/20 08:08 84 04/05/20 06:00 96.3 18 140/97 (111) 96 Nasal Cannula 2.0 I&O- Last 24 Hours up to 6 AM 04/05/20 06:00 Intake Total 1300 ml Output Total 450 ml Balance 850 ml PHILIP LOPEZ MD Apr 05, 2020 08:57
[2020-04-05 10:00] VITALS: BP 137/94
[2020-04-05] MEDS: GASTROGRAFIN SOLUTION 30ML PO SCH ×3 (11:01→11:40)
[2020-04-05 11:46] VITALS: BP 130/88
--- NOTE | 2020-04-05 13:00 | REP ---
INDICATION: Diarrhea COMPARISON: 03/31/2020 TECHNIQUE: Axial noncontrast images from the lung bases to the pubic symphysis with coronal and sagittal reformations after the administration of oral contrast material as per protocol. This CT examination was performed using the following dose reduction techniques: Automated exposure control, adjustment of mA and/or kv according to the patient's size, and use of iterative reconstruction technique. FINDINGS: Lung bases demonstrate chronic elevation to the right hemidiaphragm with moderate right and small left pleural effusions/passive atelectasis. Liver, spleen, pancreas, gallbladder, bilateral adrenal glands and left kidney are relatively normal for noncontrast evaluation. Right kidney again demonstrates hypodense lesions suggesting simple and complex cysts. The enteric system is without obstruction or obvious acute inflammatory process. Scattered colonic diverticula noted without acute diverticulitis. Pelvis demonstrates normal bladder and stable prostatomegaly. No ascites. No free air. No adenopathy. Atherosclerotic changes and subtle aneurysmal changes to the abdominal aorta remains stable. Musculoskeletal structures are intact and without acute osseous abnormality. IMPRESSION: 1. Mildly increased pleural effusions and basilar atelectasis (right greater than left). 2. Chronic stable non acute abdominopelvic findings. 3. No obvious acute abdominopelvic process. No ascites. No inflammatory stranding. No free air. No adenopathy. <Electronically signed by Laz De La Rosa > 04/05/20 [id number]
[2020-04-05 14:00] VITALS: BP 129/86
[2020-04-05] MEDS: metroNIDAZOLE 500 MG in IV 1 EA IV SCH ×2 (14:23→21:15)
[2020-04-05] MEDS ORDERED: FUROSEMIDE 20 MG TAB PO ONE (14:30)
[2020-04-05] MEDS: cefTRIAXone SOD 2 GM in D5W MINI-BAG PLUS 50 ML IV SCH (15:34)
[2020-04-05 18:00] VITALS: BP 131/87; O2SAT 95
[2020-04-05 22:00] VITALS: BP_SYST 126; BP_SYST 84; BP_DIAS 50; BP_DIAS 56; O2SAT 95
[2020-04-06 02:00] VITALS: BP 126/76
[2020-04-06] MEDS: metroNIDAZOLE 500 MG in IV 1 EA IV SCH ×3 (05:08→22:41)
[2020-04-06] MEDS: SODIUM CHLORIDE 0.9% INJ 10 ML SYR IV SCH ×3 (05:08→22:41)
[2020-04-06 06:26] VITALS: BP 132/86
[2020-04-06 07:00] LABS: BASO # 0.1 10^3/uL (0.0-0.2); BASO % 0.4 % (0.0-1.0); EOS # 0.2 10^3/uL (0.0-0.5); EOS % 1.4 % (0.0-3.0); HEMATOCRIT 35.8 % (42.0-52.0); HEMOGLOBIN 12.3 g/dl (13.5-17.5); LYMPH # 1.4 10^3/uL (1.5-5.0); LYMPH % 8.4 % (24.0-44.0); MEAN CORPUSCULAR HEMOGLOBIN 30.6 pg (27.0-33.0); MEAN CORPUSCULAR HGB CONC 34.4 g/dl (32.0-36.5); MEAN CORPUSCULAR VOLUME 89.1 fl (80.0-96.0); MONO # 0.6 10^3/uL (0.0-0.8); MONO % 3.4 % (0.0-5.0); NEUTROPHILS # 13.7 10^3/uL (1.5-8.5); NEUTROPHILS % 85.1 % (36.0-66.0); PLATELET COUNT, AUTOMATED 159 10^3/uL (150-450); RED BLOOD COUNT 4.02 10^6/uL (4.30-6.10); WHITE BLOOD COUNT 16.1 10^3/uL (4.0-10.0)
[2020-04-06 07:21] LABS: ALBUMIN 1.9 GM/DL (3.2-5.2); ALT/SGPT 95 U/L (12-78); BILIRUBIN,TOTAL 0.8 MG/DL (0.2-1.0); BLOOD UREA NITROGEN 25 MG/DL (7-18); CALCIUM LEVEL 7.5 MG/DL (8.8-10.2); CARBON DIOXIDE LEVEL 23 MEQ/L (21-32); CHLORIDE LEVEL 110 MEQ/L (98-107); CREATININE FOR GFR 1.16 MG/DL (0.70-1.30); GLOMERULAR FILTRATION RATE > 60.0 (>35); GLUCOSE, FASTING 113 MG/DL (70-100); POTASSIUM SERUM 3.7 MEQ/L (3.5-5.1); SODIUM LEVEL 140 MEQ/L (136-145); TOTAL PROTEIN 5.1 GM/DL (6.4-8.2)
[2020-04-06] MEDS: LACTOBACILLUS ACIDOPHILUS CAP (BACID) PO SCH ×2 (09:49→22:40)
[2020-04-06] MEDS: REMEDY PHYTOPLEX Z-GUARD PASTE 113GM TUBE (FROM STOREROOM PRODUCT) TOP SCH ×3 (09:49→22:40)
[2020-04-06] MEDS: DIGOXIN 0.125 MG TAB PO SCH (09:50)
[2020-04-06 10:00] VITALS: BP 129/79
--- NOTE | 2020-04-06 10:07 | IPNPDOC ---
Text Note Date of Service The patient was seen on 04/06/20. NOTE Subjective: Patient seen and examined at bedside. No acute overnight events reported. Patient voices no new medical complaints. He does however note, polyuria Objective: Vitals (See below) General: lying comfortably in bed, elderly, NAD HEENT: NC, AT CVS: +S1S2 Lungs: CTA B/L Abdomen: soft, NT, ND, +BS Extremities: No edema of lower extremities, - Calf tenderness A/P: 84M with PMHx Dementia, HTN, Prostate CA (s/p radiation therapy), Hearing loss and Vertigo who presented to the [facility] as a transfer from [facility] for suspected sepsis, UTI. Upon arrival, patient was tachypneic, tachycardic, febrile and was admitted to ICU. #Sepsis 2/2 bacteremia - possibly 2/2 UTI, possibly 2/2 intra-abdominal etiology (Diverticulitis) - Remains hemodynamically stable / Afebrile - Procalcitonin much improved - Blood culture from external facility: Gram negative rods - first repeat BCx - E.Coli, second repeat blood cultures are negative to date - c/w Ceftriaxone and Flagyl day #5; s/p Zosyn and Vancomycin (MRSA screen negative) #UTI - Urine culture from 02/26: consistent with E. Coli - hernandez-sensitive ([facility]) - UA concerning for infection - Urine culture 03/30: Negative - (See above) #Diarrhea; s/p RLQ pain - possibly 2/2 diverticulitis - Patient denies any abdominal discomfort, nausea, vomiting - Patient has reported diarrhea yesterday night - Abdomen agains remains nontender - C. Diff negative - Stool for occult blood - negative - Imaging noted above - c/w Antibiotics (See above) #A. fib; s/p RVR - Patient currently is rate controlled - EKG has revealed A. fib, currently improved - s/p Digoxin loading dose - Digoxin level noted - TSH WNL - Echocardiogram noted above - c/w Digoxin - Patient will require anticoagulation; however had hematuria / oozing from TLC occur with Heparin drip - Will re-evaluate starting anticoagulation #s/p Elevated troponin - likely 2/2 Demand ischemia; less likely 2/2 NSTEMI - No chest pain - Echocardiogram noted above - EKG without any ischemic changes - Troponin have trended down - s/p Heparin drip #s/p Acute hypoxic respiratory failure / Shortness of breath - likely 2/2 fluid overload; however initially possibly 2/2 acidosis - On admission patient was saturating in the 80s on room air, RR of 38, using accessory muscle - Patient's saturations have remained stable on room air / up to 2 L NC with ambulation - Elevated d-dimer, unable to obtain CTA chest to r/o PE due to kidney function - ABG had revealed hyperventilation - Echocardiogram noted above - Chest CT results as noted above - s/p IV fluids - Strict ins/outs, daily weights, head of bed elevation - c/w Inhaled therapy as ordered - s/p Lasix 20 IV [id number] #s/p Acute kidney injury on CKD3 - likely 2/2 severe hypotension - Cr baseline of 1.3-1.4 ([facility]) - Renal U/S shows likely medical renal disease, baseline Cr unknown - Avoid nephrotoxic agents - s/p IV fluids #s/p AG metabolic acidosis - s/p IV fluids #s/p Lactic acidosis - possibly 2/2 work of breathing #Thrombocytopenia - possibly 2/2 Sepsis - No evidence of further bleeding - Continues to improve #Elevated LFT - Remains stable - Hepatitis profile negative - Improving #s/p Metabolic encephalopathy - likely 2/2 sepsis / hypotension #DVT prophylaxis - c/w TEDs/Sequentials #Code Status - DNR/DNI VS,Fishbone, I+O VS, Fishbone, I+O Laboratory Tests 04/06/20 06:04 Vital Signs Date Time Temp Pulse Resp B/P (MAP) Pulse Ox O2 Delivery O2 Flow Rate FiO2 04/06/20 06:26 98.1 84 18 132/86 (101) 96 Nasal Cannula 0.5 I&O- Last 24 Hours up to 6 AM 04/06/20 06:00 Intake Total 1830 ml Output Total 370 ml Balance 1460 ml DOM DRAPER MD Apr 06, 2020 10:07
[2020-04-06 14:00] VITALS: BP 120/80
[2020-04-06] MEDS: cefTRIAXone SOD 2 GM in D5W MINI-BAG PLUS 50 ML IV SCH (16:17)
[2020-04-06 22:00] VITALS: BP 126/81
[2020-04-07 02:00] VITALS: BP 129/79
[2020-04-07] MEDS: SODIUM CHLORIDE 0.9% INJ 10 ML SYR IV SCH ×3 (05:19→21:14)
[2020-04-07] MEDS: metroNIDAZOLE 500 MG in IV 1 EA IV SCH ×3 (05:19→21:13)
[2020-04-07 06:00] VITALS: BP 130/75
[2020-04-07] MEDS: LACTOBACILLUS ACIDOPHILUS CAP (BACID) PO SCH ×2 (09:08→21:14)
[2020-04-07] MEDS: DIGOXIN 0.125 MG TAB PO SCH (09:09)
[2020-04-07] MEDS: REMEDY PHYTOPLEX Z-GUARD PASTE 113GM TUBE (FROM STOREROOM PRODUCT) TOP SCH ×3 (09:09→21:14)
[2020-04-07 10:00] VITALS: BP 131/81
--- NOTE | 2020-04-07 11:00 | IPNPDOC ---
Text Note Date of Service The patient was seen on 04/07/20. NOTE Subjective: Patient seen and examined at bedside. No acute overnight events reported. Patient notes polyuria and diarrhea. Objective: Vitals (See below) General: NAD, lying comfortably in bed HEENT: NC, AT CVS: +S1S2 Lungs: CTA B/L Abdomen: soft, NT, ND, +BS Extremities: No edema of lower extremities, - Calf tenderness A/P: 84M with PMHx Dementia, HTN, Prostate CA (s/p radiation therapy), Hearing loss and Vertigo who presented to the [facility] as a transfer from [facility] for suspected sepsis, UTI. Upon arrival, patient was tachypneic, tachycardic, febrile and was admitted to ICU. #Sepsis 2/2 bacteremia - possibly 2/2 UTI, possibly 2/2 intra-abdominal etiology (Diverticulitis) - Remains hemodynamically stable / Afebrile - Procalcitonin much improved - Blood culture from outside facility: Gram negative rods - first repeat BCx - E.Coli, second repeat blood cultures are negative to date - c/w Ceftriaxone and Flagyl day #6; s/p Zosyn and Vancomycin (MRSA screen negative) #UTI - Urine culture from 02/26: consistent with E. Coli - hernandez-sensitive ([facility]) - UA concerning for infection - Urine culture 03/30: Negative - (See above) #Diarrhea; s/p RLQ pain - possibly 2/2 diverticulitis - Patient denies any abdominal discomfort, nausea, vomiting - Patient still reporting diarrhea - will check repeat C. Diff - Stool for occult blood - negative - Imaging noted above #A. fib; s/p RVR - Patient currently is rate controlled - EKG has revealed A. fib, currently improved - s/p Digoxin loading dose - Digoxin level noted - TSH WNL - Echocardiogram noted above - c/w Digoxin - Patient will require anticoagulation; however had hematuria / oozing from TLC occur with Heparin drip - Will re-evaluate starting anticoagulation #s/p Elevated troponin - likely 2/2 Demand ischemia; less likely 2/2 NSTEMI - No chest pain - Echocardiogram noted above - EKG without any ischemic changes - Troponin have trended down - s/p Heparin drip #s/p Acute hypoxic respiratory failure / Shortness of breath - likely 2/2 fluid overload; however initially possibly 2/2 acidosis - On admission patient was saturating in the 80s on room air, RR of 38, using accessory muscle - Patient's saturations have remained stable on room air / up to 2 L NC with ambulation - Elevated d-dimer, unable to obtain CTA chest to r/o PE due to kidney function - ABG had revealed hyperventilation - Echocardiogram noted above - Chest CT results as noted above - s/p IV fluids - Strict ins/outs, daily weights, head of bed elevation - c/w Inhaled therapy as ordered - s/p Lasix 20 IV [id number] #s/p Acute kidney injury on CKD3 - likely 2/2 severe hypotension - Cr baseline of 1.3-1.4 ([facility]) - Renal U/S shows likely medical renal disease, baseline Cr unknown - Avoid nephrotoxic agents - s/p IV fluids #s/p AG metabolic acidosis - s/p IV fluids #s/p Lactic acidosis - possibly 2/2 work of breathing #Thrombocytopenia - possibly 2/2 Sepsis - No evidence of further bleeding - Continues to improve #Elevated LFT - Remains stable - Hepatitis profile negative #s/p Metabolic encephalopathy - likely 2/2 sepsis / hypotension #DVT prophylaxis - c/w TEDs/Sequentials #Code Status - DNR/DNI Dispo: repeat labs tomorrow, likely d/c antibiotics tomorrow, wean O2, PT/OT, PFS VS,Fishbone, I+O VS, Fishbone, I+O Vital Signs Date Time Temp Pulse Resp B/P (MAP) Pulse Ox O2 Delivery O2 Flow Rate FiO2 04/07/20 10:00 97.1 91 17 131/81 (98) 95 Nasal Cannula 0.5 I&O- Last 24 Hours up to 6 AM 04/07/20 06:00 Intake Total 1080 ml Output Total 1200 ml Balance -120 ml DOM DRAPER MD Apr 07, 2020 11:00
[2020-04-07 14:00] VITALS: BP 132/84
[2020-04-07] MEDS: cefTRIAXone SOD 2 GM in D5W MINI-BAG PLUS 50 ML IV SCH (15:27)
[2020-04-07 18:00] VITALS: BP 136/85
[2020-04-07 22:00] VITALS: BP 134/84
[2020-04-08 02:00] VITALS: BP 133/82
[2020-04-08] MEDS: SODIUM CHLORIDE 0.9% INJ 10 ML SYR IV SCH ×3 (05:19→21:37)
[2020-04-08] MEDS: metroNIDAZOLE 500 MG in IV 1 EA IV SCH ×3 (05:19→21:37)
[2020-04-08 06:00] VITALS: BP 134/82
[2020-04-08 06:25] LABS: BASO # 0.1 10^3/uL (0.0-0.2); BASO % 0.4 % (0.0-1.0); EOS # 0.2 10^3/uL (0.0-0.5); EOS % 1.3 % (0.0-3.0); HEMATOCRIT 34.5 % (42.0-52.0); HEMOGLOBIN 11.5 g/dl (13.5-17.5); LYMPH # 1.1 10^3/uL (1.5-5.0); LYMPH % 9.7 % (24.0-44.0); MEAN CORPUSCULAR HEMOGLOBIN 30.2 pg (27.0-33.0); MEAN CORPUSCULAR HGB CONC 33.3 g/dl (32.0-36.5); MEAN CORPUSCULAR VOLUME 90.6 fl (80.0-96.0); MONO # 0.6 10^3/uL (0.0-0.8); MONO % 4.9 % (0.0-5.0); NEUTROPHILS # 9.6 10^3/uL (1.5-8.5); NEUTROPHILS % 82.9 % (36.0-66.0); PLATELET COUNT, AUTOMATED 185 10^3/uL (150-450); RED BLOOD COUNT 3.81 10^6/uL (4.30-6.10); WHITE BLOOD COUNT 11.5 10^3/uL (4.0-10.0)
[2020-04-08 07:01] LABS: ALT/SGPT 54 U/L (12-78); BILIRUBIN,TOTAL 0.7 MG/DL (0.2-1.0); BLOOD UREA NITROGEN 19 MG/DL (7-18); C REACTIVE PROTEIN QUANTITATIV 6.46 MG/DL (0.00-0.30); CALCIUM LEVEL 7.5 MG/DL (8.8-10.2); CARBON DIOXIDE LEVEL 24 MEQ/L (21-32); CHLORIDE LEVEL 110 MEQ/L (98-107); CREATININE FOR GFR 1.06 MG/DL (0.70-1.30); GLOMERULAR FILTRATION RATE > 60.0 (>35); GLUCOSE, FASTING 118 MG/DL (70-100); POTASSIUM SERUM 4.1 MEQ/L (3.5-5.1); SODIUM LEVEL 138 MEQ/L (136-145); TOTAL PROTEIN 5.2 GM/DL (6.4-8.2)
[2020-04-08] MEDS: DIGOXIN 0.125 MG TAB PO SCH (08:29)
[2020-04-08] MEDS: LACTOBACILLUS ACIDOPHILUS CAP (BACID) PO SCH ×2 (08:29→20:46)
[2020-04-08] MEDS: REMEDY PHYTOPLEX Z-GUARD PASTE 113GM TUBE (FROM STOREROOM PRODUCT) TOP SCH ×3 (08:29→20:47)
--- NOTE | 2020-04-08 08:59 | IPNPDOC ---
Text Note Date of Service The patient was seen on 04/08/20. NOTE Subjective: Patient seen and examined at bedside. No acute overnight events reported. Patient has no new medical complaints this morning. Objective: Vitals (See below) General: NAD, lying comfortably in bed HEENT: NC, AT, poor dentition CVS: +S1S2 Lungs: CTA B/L Abdomen: soft, NT, ND, +BS Extremities: No edema of lower extremities, - Calf tenderness A/P: 84M with PMHx Dementia, HTN, Prostate CA (s/p radiation therapy), Hearing loss and Vertigo who presented to the [facility] as a transfer from [facility] for suspected sepsis, UTI. Upon arrival, patient was tachypneic, tachycardic, febrile and was admitted to ICU. #Sepsis 2/2 bacteremia - possibly 2/2 UTI, possibly 2/2 intra-abdominal etiology (Diverticulitis) - Remains hemodynamically stable / Afebrile - Procalcitonin much improved - Blood culture from outside facility: Gram negative rods - first repeat BCx - E.Coli, second repeat blood cultures are negative to date - c/w Ceftriaxone and Flagyl - day #7; s/p Zosyn and Vancomycin (MRSA screen negative) #UTI - Urine culture from 02/26: consistent with E. Coli - hernandez-sensitive ([facility]) - UA concerning for infection - Urine culture 03/30: Negative - (See above) #Diarrhea; s/p RLQ pain - possibly 2/2 diverticulitis - Patient denies any abdominal discomfort, nausea, vomiting - Patient still reporting diarrhea - repeat C. Diff pending - Stool for occult blood - negative - Imaging noted above #A. fib; s/p RVR - Patient currently is rate controlled - EKG has revealed A. fib, currently improved - s/p Digoxin loading dose - Digoxin level noted - TSH WNL - Echocardiogram noted above - c/w Digoxin - Patient will require anticoagulation; however had hematuria / oozing from TLC occur with Heparin drip - Will re-evaluate starting anticoagulation #s/p Elevated troponin - likely 2/2 Demand ischemia - No chest pain - Echocardiogram noted above - EKG without any ischemic changes - Troponin have trended down - s/p Heparin drip #s/p Acute hypoxic respiratory failure / Shortness of breath - likely 2/2 fluid overload; however initially possibly 2/2 acidosis - On admission patient was saturating in the 80s on room air, RR of 38, using accessory muscle - Patient's saturations have remained stable on room air / up to 2 L NC with ambulation - Elevated d-dimer, unable to obtain CTA chest to r/o PE due to kidney function - ABG had revealed hyperventilation - Echocardiogram noted above - Chest CT results as noted above - s/p IV fluids - Strict ins/outs, daily weights, head of bed elevation - c/w Inhaled therapy as ordered - s/p Lasix 20 IV [id number] #s/p Acute kidney injury on CKD3 - likely 2/2 severe hypotension - Cr baseline of 1.3-1.4 ([facility]) - Renal U/S shows likely medical renal disease, baseline Cr unknown - Avoid nephrotoxic agents - s/p IV fluids #s/p AG metabolic acidosis - s/p IV fluids #s/p Lactic acidosis - possibly 2/2 work of breathing #Thrombocytopenia - possibly 2/2 Sepsis - No evidence of further bleeding - Continues to improve #Elevated LFT - Remains stable - Hepatitis profile negative #s/p Metabolic encephalopathy - likely 2/2 sepsis / hypotension #DVT prophylaxis - c/w TEDs/Sequentials #Code Status - DNR/DNI Dispo: d/c antibiotics, wean O2, PT/OT, PFS VS,Fishbone, I+O VS, Fishbone, I+O Laboratory Tests 04/08/20 06:07 Vital Signs Date Time Temp Pulse Resp B/P (MAP) Pulse Ox O2 Delivery O2 Flow Rate FiO2 04/08/20 08:29 87 04/08/20 06:00 98.0 20 134/82 (99) 95 Nasal Cannula 0.5 I&O- Last 24 Hours up to 6 AM 04/08/20 06:00 Intake Total 1520 ml Output Total 1125 ml Balance 395 ml DOM DRAPER MD Apr 08, 2020 08:59
[2020-04-08 10:00] VITALS: BP 128/81
[2020-04-08 14:00] VITALS: BP 131/78
[2020-04-08] MEDS: cefTRIAXone SOD 2 GM in D5W MINI-BAG PLUS 50 ML IV SCH (15:31)
[2020-04-08 18:00] VITALS: BP 132/78
[2020-04-08 22:00] VITALS: BP 129/80
[2020-04-09 02:00] VITALS: BP 128/80
[2020-04-09] MEDS: SODIUM CHLORIDE 0.9% INJ 10 ML SYR IV SCH ×2 (05:12→14:12)
[2020-04-09] MEDS: metroNIDAZOLE 500 MG in IV 1 EA IV SCH ×3 (05:12→21:37)
[2020-04-09 06:00] VITALS: BP 140/89
[2020-04-09] MEDS: LACTOBACILLUS ACIDOPHILUS CAP (BACID) PO SCH ×2 (09:27→21:36)
[2020-04-09] MEDS: DIGOXIN 0.125 MG TAB PO SCH (09:27)
[2020-04-09] MEDS: REMEDY PHYTOPLEX Z-GUARD PASTE 113GM TUBE (FROM STOREROOM PRODUCT) TOP SCH ×3 (09:28→21:39)
[2020-04-09 09:57] VITALS: BP 103/70
[2020-04-09 13:34] VITALS: BP 136/77
[2020-04-09] MEDS: cefTRIAXone SOD 2 GM in D5W MINI-BAG PLUS 50 ML IV SCH (14:12)
--- NOTE | 2020-04-09 15:59 | IPNPDOC ---
Text Note Date of Service The patient was seen on 04/09/20. NOTE Subjective: Patient seen and examined at bedside. Having small amounts of loose semisolid stools. No acute overnight events reported. Patient has no new medical complaints this morning. Objective: Vitals (See below) General: NAD, sitting comfortably in bed HEENT: NC, AT, poor dentition Neck: No JVD, No thyromegaly. CVS: +S1S2 irregular, No rub/ murmur or gallop Lungs: CTA bilateally , no ronchi or crackles. Abdomen: soft, NT, ND, +BS Extremities: No edema of lower extremities, - Calf tenderness Labs and Radiology: reviewed. A/P: 84M with PMHx Dementia, HTN, Prostate CA (s/p radiation therapy), Hearing loss and Vertigo who presented to the [facility] as a transfer from [facility] for suspected sepsis, UTI. Upon arrival, patient was tachypneic, tachycardic, febrile and was admitted to ICU. Sepsis 2/2 gram negative bacteremia - possibly 2/2 UTI vs intra-abdominal etiology (Diverticulitis) Procalcitonin much improved Blood culture from outside facility: Gram negative rods first repeat BCx - E.Coli, second repeat blood cultures are negative to date c/w Ceftriaxone and Flagyl - day #8; s/p Zosyn and Vancomycin (MRSA screen negative) UTI Urine culture from 02/26: consistent with E. Coli - hernandez-sensitive ([facility]) Do not have UA/UC results from outside hospital. UA concerning for infection Urine culture 03/30: Negative Diverticulitis Diarrhea adn s/p RLQ pain Patient denies any abdominal discomfort, nausea, vomiting Patient still reporting small amounts of loose stools. Stool for occult blood - negative Transaminitis due to sepsis now resolved A. fib; s/p RVR Patient currently is rate controlled s/p Digoxin loading dose Digoxin level noted TSH WNL c/w Digoxin Echo Normal. Patient will require anticoagulation; however had hematuria / oozing from TLC occur with Heparin drip Will re-evaluate starting anticoagulation s/p Elevated troponin likely 2/2 LORETTA and Afib with RVR. Echocardiogram normal EKG without any ischemic changes Troponin have trended down s/p Heparin drip S/p Acute hypoxic respiratory failure likely 2/2 fluid overload; however initially possibly 2/2 acidosis On admission patient was saturating in the 80s on room air, RR of 38, using accessory muscle Patient's saturations have remained stable on room air / up to 2 L NC with ambulation Elevated d-dimer, unable to obtain CTA chest to r/o PE due to kidney function ABG had revealed hyperventilation Chest CT results as noted above Strict ins/outs, daily weights, head of bed elevation c/w Inhaled therapy as ordered s/p Acute kidney injury on CKD3 - likely 2/2 severe hypotension Cr baseline of 1.3-1.4 ([facility]) Renal U/S shows likely medical renal disease, baseline Cr unknown Avoid nephrotoxic agents s/p IV fluids Now creatinine better than baseline. s/p AG metabolic acidosis s/p IV fluids s/p Lactic acidosis - possibly 2/2 work of breathing Thrombocytopenia - possibly 2/2 Sepsis No evidence of further bleeding Continues to improve s/p Metabolic encephalopathy - likely 2/2 sepsis / hypotension DVT prophylaxis c/w TEDs/Sequentials Code Status DNR/DNI Dispo: d/c antibiotics, wean O2, PT/OT, PFS VS,Fishbone, I+O VS, Fishbone, I+O Vital Signs Date Time Temp Pulse Resp B/P (MAP) Pulse Ox O2 Delivery O2 Flow Rate FiO2 04/09/20 13:34 99.0 95 16 136/77 (96) 97 Room Air 04/09/20 09:57 0.5 I&O- Last 24 Hours up to 6 AM 04/09/20 07:00 Intake Total 1520 ml Output Total 750 ml Balance 770 ml VIC CRAIN MD Apr 09, 2020 15:59
[2020-04-09 17:35] VITALS: BP 123/74
[2020-04-09 22:00] VITALS: BP 134/78
[2020-04-10] VITALS (10 sets, daily range): BP systolic 113–156; BP diastolic 69–88; O2SAT 96
[2020-04-10] MEDS: metroNIDAZOLE 500 MG in IV 1 EA IV SCH ×3 (06:08→21:11)
[2020-04-10] MEDS: NYSTATIN 100,000 UNITS/GM TOPICAL PWD 15 GM TOP PRN ×3 (06:08→21:12)
[2020-04-10] MEDS: diphenhydrAMINE CREAM 30GM TOP PRN ×2 (06:09→21:12)
[2020-04-10 06:28] LABS: BASO # 0.1 10^3/uL (0.0-0.2); BASO % 0.9 % (0.0-1.0); EOS # 0.2 10^3/uL (0.0-0.5); EOS % 1.8 % (0.0-3.0); HEMATOCRIT 38.7 % (42.0-52.0); HEMOGLOBIN 12.8 g/dl (13.5-17.5); LYMPH # 1.3 10^3/uL (1.5-5.0); LYMPH % 13.1 % (24.0-44.0); MEAN CORPUSCULAR HEMOGLOBIN 30.3 pg (27.0-33.0); MEAN CORPUSCULAR HGB CONC 33.1 g/dl (32.0-36.5); MEAN CORPUSCULAR VOLUME 91.5 fl (80.0-96.0); MONO # 0.9 10^3/uL (0.0-0.8); MONO % 9.2 % (0.0-5.0); NEUTROPHILS # 7.4 10^3/uL (1.5-8.5); NEUTROPHILS % 74.4 % (36.0-66.0); PLATELET COUNT, AUTOMATED 253 10^3/uL (150-450); RED BLOOD COUNT 4.23 10^6/uL (4.30-6.10); WHITE BLOOD COUNT 9.9 10^3/uL (4.0-10.0)
[2020-04-10] MEDS: DIGOXIN 0.125 MG TAB PO SCH (06:53)
[2020-04-10 07:01] LABS: ALBUMIN 2.1 GM/DL (3.2-5.2); ALT/SGPT 40 U/L (12-78); BILIRUBIN,TOTAL 0.5 MG/DL (0.2-1.0); BLOOD UREA NITROGEN 17 MG/DL (7-18); CALCIUM LEVEL 7.9 MG/DL (8.8-10.2); CARBON DIOXIDE LEVEL 22 MEQ/L (21-32); CHLORIDE LEVEL 108 MEQ/L (98-107); CREATININE FOR GFR 1.08 MG/DL (0.70-1.30); GLOMERULAR FILTRATION RATE > 60.0 (>35); GLUCOSE, FASTING 129 MG/DL (70-100); POTASSIUM SERUM 4.2 MEQ/L (3.5-5.1); SODIUM LEVEL 136 MEQ/L (136-145); TOTAL PROTEIN 6.3 GM/DL (6.4-8.2)
[2020-04-10] MEDS: LACTOBACILLUS ACIDOPHILUS CAP (BACID) PO SCH ×2 (08:32→21:10)
--- NOTE | 2020-04-10 13:21 | REP ---
INDICATION: outpatient exam. COMPARISON: None. TECHNIQUE/RADIOTRACER AND DOSE: 20.3 mCi of Technetium-99m MDP was injected and standard whole-body bone scanning is acquired. FINDINGS: There is a normal distribution of skeletal tracer with uptake in bilateral kidneys and in the urinary bladder. There is no evidence to suggest skeletal metastatic disease. There is some urinary contamination in the perineum and in the patient's gown along the right hip region. IMPRESSION: Negative whole body radionuclide bone scan. <Electronically signed by Geo Reynoso > 04/10/20 [id number]
--- NOTE | 2020-04-10 15:59 | IPNPDOC ---
Text Note Date of Service The patient was seen on 04/10/20. NOTE Subjective: Patient seen and examined at bedside. Having small amounts of loose semisolid stools. No acute overnight events reported. Patient has no new medical complaints this morning. Objective: Vitals (See below) General: NAD, sitting comfortably in bed HEENT: NC, AT, poor dentition Neck: No JVD, No thyromegaly. CVS: +S1S2 irregular, No rub/ murmur or gallop Lungs: CTA bilateally , no ronchi or crackles. Abdomen: soft, NT, ND, +BS Extremities: No edema of lower extremities, - Calf tenderness Labs and Radiology: reviewed. A/P: 84M with PMHx Dementia, HTN, Prostate CA (s/p radiation therapy), Hearing loss and Vertigo who presented to the [facility] as a transfer from [facility] for suspected sepsis, UTI. Upon arrival, patient was tachypneic, tachycardic, f ebrile and was admitted to ICU. Now with new onset rash on the back. Rash on the Back, buttocks and groin with some pustules. probably from heat and moisture, Try to keep areas dry. continue nystatin powder in the groin and buttocks. Sepsis 2/2 gram negative bacteremia - 2/2 UTI + Diverticulitis Procalcitonin much improved Blood culture from outside facility: Ecoli 2/2 bottles. first repeat BCx - E.Coli, second repeat blood cultures are negative to date Finished Ceftriaxone #8 continue Flagyl ; s/p Zosyn and Vancomycin (MRSA screen negative) UTI Urine culture from 03/29: E. Coli Blood cultures 2/2 from 03/29 positive for E coli. UA concerning for infection Urine culture 03/30: Negative Diverticulitis Diarrhea and s/p RLQ pain Patient denies any abdominal discomfort, nausea, vomiting Patient still reporting small amounts of loose stools. Stool for occult blood - negative Transaminitis due to sepsis now resolved New onset A. fib from 03/31; s/p RVR Still having intermittent RVR On digoxin will start atenolol. TSH WNL Echo Normal. Patient will require anticoagulation; however had hematuria / oozing from TLC occur with Heparin drip will start on eliquis at lower dose. s/p Elevated troponin likely 2/2 LORETTA and Afib with RVR. Echocardiogram normal EKG without any ischemic changes Troponin have trended down s/p Heparin drip S/p Acute hypoxic respiratory failure likely 2/2 fluid overload; however initially possibly 2/2 acidosis On admission patient was saturating in the 80s on room air, RR of 38, using accessory muscle Patient's saturations have remained stable on room air / up to 2 L NC with ambulation Elevated d-dimer, unable to obtain CTA chest to r/o PE due to kidney function ABG had revealed hyperventilation Chest CT results as noted above Strict ins/outs, daily weights, head of bed elevation c/w Inhaled therapy as ordered s/p Acute kidney injury on CKD3 - likely 2/2 severe hypotension Cr baseline of 1.3-1.4 ([facility]) Renal U/S shows likely medical renal disease, baseline Cr unknown Avoid nephrotoxic agents s/p IV fluids Now creatinine better than baseline. s/p AG metabolic acidosis s/p IV fluids s/p Lactic acidosis - possibly 2/2 work of breathing Thrombocytopenia - possibly 2/2 Sepsis No evidence of further bleeding Continues to improve s/p Metabolic encephalopathy - likely 2/2 sepsis / hypotension DVT prophylaxis c/w TEDs/Sequentials Code Status DNR/DNI Dispo: wean O2, PT/OT, PFS VS,Fishbone, I+O VS, Fishbone, I+O Laboratory Tests 04/10/20 06:01 Vital Signs Date Time Temp Pulse Resp B/P (MAP) Pulse Ox O2 Delivery O2 Flow Rate FiO2 04/10/20 06:53 109 04/10/20 06:40 26 143/86 (105) 94 Room Air 04/10/20 06:19 96.8 04/09/20 09:57 0.5 I&O- Last 24 Hours up to 6 AM 04/10/20 07:00 Intake Total 1070 ml Output Total 1350 ml Balance -280 ml VIC CRAIN MD Apr 10, 2020 06:57
--- NOTE | 2020-04-10 16:15 | ECGEPIP ---
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
[2020-04-10] MEDS ORDERED: ELIQ2.5T PO (17:28)
[2020-04-10] MEDS ORDERED: atenoloL 25 MG TAB PO SCH (21:00)
[2020-04-10] MEDS: APIXABAN 2.5 MG TAB (ELIQUIS) PO SCH (21:10)
[2020-04-10] MEDS: hydrOXYzine 25 MG TAB PO PRN (21:11)
[2020-04-10] MEDS: ACETAMINOPHEN TAB 650MG DOSE (2X325MG) PO PRN (21:15)
[2020-04-11 02:00] VITALS: BP 120/76
[2020-04-11 06:00] VITALS: BP 134/81
[2020-04-11] MEDS: metroNIDAZOLE 500 MG in IV 1 EA IV SCH ×2 (06:04→14:00)
[2020-04-11 08:12] LABS: BASO # 0.1 10^3/uL (0.0-0.2); EOS # 0.2 10^3/uL (0.0-0.5); EOS % 2.8 % (0.0-3.0); HEMATOCRIT 36.4 % (42.0-52.0); HEMOGLOBIN 12.1 g/dl (13.5-17.5); LYMPH # 1.3 10^3/uL (1.5-5.0); LYMPH % 15.5 % (24.0-44.0); MEAN CORPUSCULAR HEMOGLOBIN 30.9 pg (27.0-33.0); MEAN CORPUSCULAR HGB CONC 33.2 g/dl (32.0-36.5); MEAN CORPUSCULAR VOLUME 93.1 fl (80.0-96.0); MONO # 0.9 10^3/uL (0.0-0.8); MONO % 11.2 % (0.0-5.0); NEUTROPHILS # 5.7 10^3/uL (1.5-8.5); NEUTROPHILS % 68.9 % (36.0-66.0); PLATELET COUNT, AUTOMATED 263 10^3/uL (150-450); RED BLOOD COUNT 3.91 10^6/uL (4.30-6.10); WHITE BLOOD COUNT 8.3 10^3/uL (4.0-10.0)
[2020-04-11 08:36] LABS: ALBUMIN 2.2 GM/DL (3.2-5.2); BILIRUBIN,TOTAL 0.5 MG/DL (0.2-1.0); CALCIUM LEVEL 7.8 MG/DL (8.8-10.2); CREATININE FOR GFR 1.24 MG/DL (0.70-1.30); GLOMERULAR FILTRATION RATE 59.1 (>35); POTASSIUM SERUM 4.2 MEQ/L (3.5-5.1); TOTAL PROTEIN 6.2 GM/DL (6.4-8.2)
[2020-04-11] MEDS: DIGOXIN 0.125 MG TAB PO SCH (08:38)
[2020-04-11] MEDS: LACTOBACILLUS ACIDOPHILUS CAP (BACID) PO SCH (08:38)
[2020-04-11] MEDS: APIXABAN 2.5 MG TAB (ELIQUIS) PO SCH (08:38)
[2020-04-11 10:00] VITALS: BP 104/70
--- NOTE | 2020-04-11 10:25 | ECGEPIP ---
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
[2020-04-11] MEDS ORDERED: NYST10006 TOP (11:32)
[2020-04-11] MEDS ORDERED: ATEN25TA PO (11:32)
[2020-04-11] MEDS ORDERED: FLAG500T PO (11:32)
[2020-04-11 12:36] LABS: DIGOXIN LEVEL 0.7 NG/ML (0.5-2.0)
[2020-04-11 14:00] VITALS: BP 118/76
--- NOTE | 2020-04-11 16:23 | DS.PDOC ---
Discharge Summary General Date of Admission Mar 29, 2020 at 23:02 Date of Discharge 04/11/20 Discharge Summary PROCEDURES PERFORMED DURING STAY: [None]. DISCHARGE DIAGNOSES: Gram negative bacteremia with E coli Sepsis from UTI and Diverticulitis. UTI with E coli Diverticulitis s/p Acute respiratory failure with hypoxia s/p Acute metabolic encephalopathy New onset Afib with rvr converted to sinus spontaneously Transaminitis LORETTA on CKD stage 3 s/p High AG metabolic acidosis s/p Lactic acidosis s/p Thrombocytopenia. Intertriginous candidiasis SECONDARY DIAGNOSIS: Dementia, HTN, Prostate CA (s/p radiation therapy), Hearing loss and Vertigo, BPH COMPLICATIONS/CHIEF COMPLAINT: Multiple Dysfunction Organ Syndrome. HOSPITAL COURSE: 84M with PMHx Dementia, HTN, Prostate CA (s/p radiation therapy), Hearing loss and Vertigo who presented to the [facility] as a transfer from [facility] for suspected sepsis, UTI. Upon arrival, patient was tachypneic, tachycardic, febrile and was admitted to ICU. Now with new onset rash on the back. Sepsis 2/2 gram negative bacteremia - 2/2 UTI + Diverticulitis Procalcitonin much improved Blood culture from outside facility: Ecoli 2/2 bottles. first repeat BCx here - E.Coli, second repeat blood cultures are negative Finished Ceftriaxone #8 continue Flagyl ; s/p Zosyn and Vancomycin (MRSA screen negative) UTI Urine culture from 03/29: E. Coli Blood cultures 2/2 from 03/29 positive for E coli. UA concerning for infection Urine culture 03/30: Negative Diverticulitis Diarrhea and s/p RLQ pain Patient denies any abdominal discomfort, nausea, vomiting Patient still reporting small amounts of loose stools. Stool for occult blood - negative Transaminitis due to sepsis now resolved New onset A. 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 Digoxin stopped. TSH WNL Echo Normal. started on eliquis at lower dose. s/p Elevated troponin likely 2/2 LORETTA and Afib with RVR. Echocardiogram normal EKG without any ischemic changes Troponin have trended down s/p Heparin drip S/p Acute hypoxic respiratory failure initially possibly 2/2 acidosis then later developed fluid overload from fluid resuscitation for sepsis. s/p Acute kidney injury on CKD3 - likely 2/2 severe hypotension Cr baseline of 1.3-1.4 ([facility]) Renal U/S shows likely medical renal disease, baseline Cr unknown Now creatinine better than baseline. Have stopped losartan s/p AG metabolic acidosis s/p IV fluids s/p Lactic acidosis 2/2 work of breathing and sepsis Thrombocytopenia - possibly 2/2 Sepsis No evidence of further bleeding Continues to improve s/p Metabolic encephalopathy 2/2 sepsis / hypotension Rash on the Back, buttocks and groin with some pustules. probably from heat and moisture, Try to keep areas dry. continue nystatin powder in the groin and buttocks. improving. BPH Prostate can s/p RT whole body bone scan negative DISCHARGE MEDICATIONS: Please see below. ALLERGIES: Please see below. PHYSICAL EXAMINATION ON DISCHARGE: VITAL SIGNS: Please see below. General: NAD, sitting comfortably in bed HEENT: NC, AT, poor dentition Neck: No JVD, No thyromegaly. CVS: +S1S2 irregular, No rub/ murmur or gallop Lungs: CTA bilaterally , no ronchi or crackles. Abdomen: soft, NT, ND, +BS Extremities: No edema of lower extremities, - Calf tenderness LABORATORY DATA: Please see below. ACTIVITY: [As tolerated]. DIET: As tolerated DISCHARGE PLAN: Home DISCHARGE INSTRUCTIONS: PMD in 1 to 2 weeks DISCHARGE CONDITION: [Stable]. TIME SPENT ON DISCHARGE: 35 minutes. Vital Signs/I&Os Vital Signs Date Time Temp Pulse Resp B/P (MAP) Pulse Ox O2 Delivery O2 Flow Rate FiO2 04/11/20 10:00 96.2 67 18 104/70 (81) 95 Room Air 04/09/20 09:57 0.5 I&O- Last 24 Hours up to 6 AM 04/11/20 06:00 Intake Total 1390 ml Output Total 1020 ml Balance 370 ml Laboratory Data Labs 24H Laboratory Tests 2 04/11/20 07:21: Immature Granulocyte % (Auto) 0.6, Neutrophils (%) (Auto) 68.9H, Lymphocytes (%) (Auto) 15.5L, Monocytes (%) (Auto) 11.2H, Eosinophils (%) (Auto) 2.8, Basophils (%) (Auto) 1.0, Neutrophils # (Auto) 5.7, Lymphocytes # (Auto) 1.3L, Monocytes # (Auto) 0.9H, Eosinophils # (Auto) 0.2, Basophils # (Auto) 0.1, Nucleated Red Blood Cells % (auto) 0.0, Anion Gap 7L, Glomerular Filtration Rate 59.1, Calcium Level 7.8L, Total Bilirubin 0.5, Aspartate Amino Transf (AST/SGOT) 17, Alanine Aminotransferase (ALT/SGPT) 33, Alkaline Phosphatase 109, Total Protein 6.2L, Albumin 2.2L, Albumin/Globulin Ratio 0.6, Digoxin Level 0.7 CBC/BMP Laboratory Tests 04/11/20 07:21 Microbiology Microbiology 04/02/20 Blood Culture - Final, Complete NO GROWTH AFTER 5 DAYS 04/02/20 Blood Culture - Final, Complete NO GROWTH AFTER 5 DAYS 04/01/20 Blood Culture - Final, Complete NO GROWTH AFTER 5 DAYS 04/01/20 Blood Culture - Final, Complete NO GROWTH AFTER 5 DAYS Discharge Medications Scheduled Apixaban (Eliquis) 2.5 Mg Tablet, 1 TAB PO BID Atenolol (Atenolol) 25 Mg Tablet, 25 MG PO QHS Calcium Carbonate (Calcium Carbonate) 500 Mg Tablet, 500 MG PO DAILY, (Reported) Garlic (Garlic) 400 Mg Tablet, 400 MG PO DAILY, (Reported) Metronidazole (Flagyl) 500 Mg Tablet, 500 MG PO Q8H Pumpkin Seed Oil/Saw [place] (Saw [place] 160 mg Softgel) 160 Mg Capsule, 160 MG PO DAILY, (Reported) Scheduled PRN Nystatin (Nystop) 60 Gm Powder, 0 DOSE TOP BIDP PRN for RASH Allergies Coded Allergies: Sulfa (Sulfonamide Antibiotics) (Verified Adverse Reaction, Intermediate, 03/30/20) GI Upset VIC CRAIN MD Apr 11, 2020 13:25
== END 2020-04-11 16:47 | disposition home health service (06) | DRG 871 ==
LOC: M ICU 23:02 → M PCU 04-01 10:32 → M MSPAV 04-04 12:07
PROVIDERS: ADMIT Internal Medicine; ATTEND Internal Medicine Nephrology
PROC: 02HV33Z Insertion of Infusion Device into Superior Vena Cava, Percutaneous Approach (ICD-10-PCS; principal; 2020-03-30)
DX: A41.51 Sepsis due to Escherichia coli [E. coli] (principal); G93.41 Metabolic encephalopathy; J96.01 Acute respiratory failure with hypoxia; I24.8 Other forms of acute ischemic heart disease; N39.0 Urinary tract infection, site not specified; E87.2 Acidosis; N17.9 Acute kidney failure, unspecified; K57.32 Diverticulitis of large intestine without perforation or abscess without bleeding; Z66 Do not resuscitate; I48.91 Unspecified atrial fibrillation; F03.90 Unspecified dementia, unspecified severity, without behavioral disturbance, psychotic disturbance, mood disturbance, and anxiety; N18.30 Chronic kidney disease, stage 3 unspecified; R65.20 Severe sepsis without septic shock; H91.93 Unspecified hearing loss, bilateral; B37.2 Candidiasis of skin and nail; D69.6 Thrombocytopenia, unspecified; E87.70 Fluid overload, unspecified; R42 Dizziness and giddiness; I12.9 Hypertensive chronic kidney disease with stage 1 through stage 4 chronic kidney disease, or unspecified chronic kidney disease; R53.81 Other malaise; Z79.899 Other long term (current) drug therapy; Z79.82 Long term (current) use of aspirin; Z88.2 Allergy status to sulfonamides; Z85.46 Personal history of malignant neoplasm of prostate; Z20.828 Contact with and (suspected) exposure to other viral communicable diseases